=== PATIENT | female | born 1980 | race Caucasian/White ===

== ENCOUNTER 2018-04-01 17:33 | Emergency (ER) | payer BC, SELFPAY ==
[2018-04-01 17:51] VITALS: BP 124/74; PULSE 92; RESP 18; TEMP 36; O2SAT 100
--- NOTE | 2018-04-01 17:59 | DI.RAD_ITS ---
SYMPTOM/DIAGNOSIS: CRUSHED HAND, CENTRAL PAIN AND SNUFF BOX PAIN LEFT HAND: No fracture or dislocation is seen. There is mild spurring at the first carpal metacarpal joint. IMPRESSION: Mild degenerative changes at the first carpal, metacarpal joint. No acute abnormality.
--- NOTE | 2018-04-01 18:29 | W.ED.GENAD ---
Discharge Plan Disposition Patient Disposition: HOME Condition: Good Discharge Details Chief Complaint: Orthopedic Clinical Impression: Hand pain, Fracture of metacarpal Primary Care Provider: Amalia Jiménez ED Provider: Brennan Hancock Home Meds and New Rx's Prescriptions: New acetaminophen [Mapap Extra Strength] 500 MG tablet 1,000 mg PO Q6H 5 Days Qty: 60 RF: 0 ibuprofen [Motrin IB] 200 MG tablet 600 mg PO Q6H 5 Days Qty: 60 RF: 0 No Action multivitamin [Daily Multiple] 1 EACH tablet 1 ea PO DAILY RF: 0 Discharge Instructions Instructions: RICE Therapy (ED), Wrist Sprain (ED) Additional Instructions: Please use the wrist splint at all times. Please take Tylenol and Motrin for control of the pain. Please use ice as often as possible. Please follow-up with your primary care provider soon as possible for reassessment. If your numbness and tingling and pain continue, will need follow-up with an orthopedic surgeon. If you notice worsening of her swelling, pain, numbness or tingling, please return immediately. If you notice any worsening of your symptoms, or any new symptoms such as vomiting, diarrhea, fever, chills, shortness of breath, chest pain, numbness, weakness, or fainting , please return immediately to the emergency department for reevaluation. Please follow up with your primary care provider as soon as possible for reassessment and reevaluation. As always, it was a pleasure participating in your medical care today. Medical Decision Making MDM Narrative Medical decision making narrative: This is a pleasant 37-year-old female who presents with pain in her left nondominant hand after getting it stuck between a car mirror and a bureau. There is mild swelling noted on the dorsal aspect of the hand. She has subjective decrease in sensation over the palmar aspect of the index and middle finger as well as the thumb. Some tenderness roughly half a centimeter distal to the anatomical snuffbox. Good finger strength with thumb and all fingers. Good movement. Brisk capillary refill in all extremities and fingers. X-ray of the hand reveals per virtual radiology tiny fragment at the radial aspect of the first carpometacarpal joint of uncertain acuity. The patient demonstrates good movement, although sensation is slightly decreased over the median nerve distribution it is still intact. I discussed the case with Dr. Palma, who recommended wrist splint. We did discuss wrist splint versus thumb spica, his recommendation was for a normal wrist splint at this time. We did place this on the patient, she tolerated well. At this time I feel she can be safely discharged home with continued ice, NSAIDs and close follow-up with her PCP. Dr. Palma's recommendation was for PCP reevaluation for continued symptomatology or improvement or worsening of her symptoms. If her symptoms worsen or did not improve she should have orthopedic follow-up as arranged by her PCP. We discussed red flags with the patient for which to return and she understands. I have extensively reviewed the treatment plan and discharge instructions with the patient and their family. I have addressed all patient concerns at this time. The patient and family was made aware of what symptoms to monitor for that would warrant a return to the emergency department. Discussed the plan with the patient and family, they demonstrate verbal understanding and agreement with our assessment and plan at this time. HPI - General Adult General Date/Time Provider Initiated Documentation: 04/01/18 17:59. HPI Narrative: This is a pleasant 37-year-old female who presents for left hand pain. She is right-hand dominant. Patient states that earlier today she was moving a bureau when the [place] and her hand pushed up against the mirror of the car. The focus of the pain was located in the center of her hand. She had notable pain at that point as well as associated swelling in the dorsum of the hand. Patient also complains of decreased sensation over the ventral aspect of the index and middle finger as well as a small component of the thumb. She is able to move all of her fingers hand and wrist, over date is limited slightly by pain. She denies any associated forearm, elbow, or other pain. The patient denies any other complaints at this time. She denies any previous surgeries. She denies any medication use. She denies any pertinent family history. She denies any IV or illicit drug use. She denies any radiation of the pain, or any other associated symptoms. She has been placing ice on the hand, but denies any other aggravating or relieving factors. She did take Tylenol and Motrin at home with no significant improvement. Related Data Home Medications Medication Instructions Recorded Confirmed multivitamin [Daily Multiple 1 ea PO DAILY 12/06/16 04/01/18 Vitamin] Previous Rx's Medication Instructions Recorded acetaminophen [Mapap Extra 1,000 mg PO Q6H 5 Days #60 tab 04/01/18 Strength] ibuprofen [Motrin Ib] 600 mg PO Q6H 5 Days #60 tab 04/01/18 Allergies Allergy/AdvReac Type Severity Reaction Status Date / Time acetaminophen [From Vicodin] AdvReac Intermediate Nausea Unverified 04/01/18 17:59 hydrocodone bitartrate AdvReac Intermediate Nausea Unverified 04/01/18 17:59 [From Vicodin] General Stated Complaint: Orthopedic ZAC: 4 Review of Systems Review of Systems 10 point review of systems was performed, pertinent positives and negatives are noted in the history of present illness. Exam Narrative Exam Narrative: 1.Const: Well-nourished, Well-developed, appearing stated age 2.Eyes: PERRL, no conjunctival injection, and symmetrical lids. 3.ENT: Atraumatic external nose and ears. Moist MM. Neck: Symmetric, trachea midline, No thyromegaly. 4.CVS: +S1/S2, No murmurs or gallops. Peripheral pulses 2+ and equal in all extremities. Brisk capillary refill in all extremities. 5.RESP: Unlabored respiratory effort. Clear to auscultation bilaterally. No wheezes rales or rhonchi 6.GI: Soft, Nontender/Nondistended, No hepatosplenomegaly. No guarding or rebound. 7.MSK: Normocephalic, No cyanosis or clubbing, patient demonstrates normal extremity exam for all extremities except for the left hand. She is right-hand dominant. Left hand demonstrates swelling on the dorsum of the hand located centrally. The patient has pain with flexion and extension of all fingers distally to this. However she is able to move them well with good flexion and extension. She demonstrates good 2 point discrimination over the fourth and fifth digit, as well as the dorsal aspect of the hand and all fingers. She has present sensation, that is intact for the palmar surface of her thumb index and ring finger, however it is reduced compared to the other fingers. Two-point discrimination is present. Patient does have minimal tenderness near the anatomical snuffbox. However it it is roughly 1 cm distal to the snuffbox itself. Patient has good movement for flexion extension of the risks, as well as abduction and abduction of the thumb and index finger and middle finger. Patient is able to make the okay sign and able to maintain a good ground transportation operator with her thumb and index finger. 8.Skin: Warm, Dry. No rashes or lesions. 9.Neuro: refrigeration specialist II-XII grossly intact. Sensation grossly intact, no focal neurologic deficits. 10.Psych: (AAO) x3. Appropriate mood and affect Course Vital Signs Temperature 36 C L 04/01/18 17:51 Pulse 92 H 04/01/18 17:51 Respiratory Rate 18 04/01/18 17:51 Blood Pressure 124/74 04/01/18 17:51 Pulse Oximetry 100 04/01/18 17:51 Temperature 36 C L 04/01/18 17:51 Pulse 92 H 04/01/18 17:51 Respiratory Rate 18 04/01/18 17:51 Blood Pressure 124/74 04/01/18 17:51 Pulse Oximetry 100 04/01/18 17:51
--- NOTE | 2018-04-01 19:11 | DI.VRAD_ITS ---
EXAM: XR Left Hand Complete, 3 or more Views EXAM DATE/TIME: 04/01/2018 6:00 PM CLINICAL HISTORY: 37 years old, female; Pain; Hand; Left; Patient HX: Crushed hand between car and bureau; Additional info: Central pain and snuff box pain TECHNIQUE: XR Left hand 3 or more views. COMPARISON: No relevant prior studies available. FINDINGS: Bones/joints: Tiny fragment noted at the radial base of the first carpometacarpal joint, of uncertain acuity. No other fractures are seen. Alignment is within normal limits. Joint spaces are preserved. Soft tissues: Mild swelling of the dorsal soft tissues over the proximal metacarpals. Remaining soft tissues are unremarkable. IMPRESSION: Tiny fragment at the radial aspect of the first carpometacarpal joint, of uncertain acuity. Correlate for focal tenderness. No other acute fractures. Dictated and Authenticated by: Rey Beavers MD. Ordering:WILMAN SANTOS MD
== END 2018-04-01 19:45 | disposition home or self-care (01) ==
PROVIDERS: Emergency Provider Student in an Organized Health Care Education/Training Program; PCP Family Medicine
DX: S62.232A Other displaced fracture of base of first metacarpal bone, left hand, initial encounter for closed fracture (principal); R20.0 Anesthesia of skin; W23.0XXA Caught, crushed, jammed, or pinched between moving objects, initial encounter
CPT/HCPCS: 26600; 73130; L3908

== ENCOUNTER 2018-09-05 13:02 | Outpatient (CLI) | payer BC, SELFPAY ==
--- NOTE | 2018-09-05 09:37 | DI.RAD_ITS ---
SYMPTOMS/DIAGNOSIS: RIGHT SHOULDER JOINT PAIN, M25.511 RIGHT SHOULDER: No bony or joint abnormality is seen.
== END 2018-09-05 13:22 ==
PROVIDERS: PCP Family Medicine; Visit Provider Family Medicine
DX: M25.511 Pain in right shoulder (principal)
CPT/HCPCS: 73030

== ENCOUNTER 2019-04-29 07:57 | Outpatient (REF) | payer BC, SELFPAY ==
[2019-04-29 14:28] LABS: HCT 40.4 % (36.0-46.0); HGB 13.3 g/dL (12.0-15.5); Mean Corp. HGB Concentration 32.9 g/dL (32.0-36.0); Mean Corpuscular Hemoglobin 28.2 pg (27.0-33.0); Mean Corpuscular Volume 85.6 fL (80-95); Mean Platelet Volume 12.3 fL (8.0-11.0); Platelet Count 265 x1000/uL (130-400); RBC 4.72 m/cumm (4.00-5.20); RBC Distribution Width 12.9 % (11.7-14.6); White Blood Cell Count 6.49 k/cumm (4.4-10.8)
[2019-04-29 14:54] LABS: Anion Gap 10.9 mmol/L (3-11); BUN 13 mg/dL (7-18); CO2 25.1 mmol/L (21.0-32.0); CREATININE 0.99 mg/dL (0.55-1.02); Calcium 8.8 mg/dL (8.5-10.1); Chloride 106 mmol/L (98-107); Glucose 91 mg/dL (70-100); Potassium 4.3 mmol/L (3.5-5.1); Sodium 142 mmol/L (136-145)
[2019-04-29 15:05] LABS: Hemoglobin A1C 5.3 % (4.5-6.2)
== END 2019-04-29 08:17 ==
LOC: NCHCN 07:57
PROVIDERS: PCP Family Medicine; Visit Provider Family Medicine
DX: Z00.00 Encounter for general adult medical examination without abnormal findings (principal); N92.1 Excessive and frequent menstruation with irregular cycle
CPT/HCPCS: 80048; 85027; 83036

== ENCOUNTER 2019-05-08 01:42 | Outpatient (CLI) | payer BC, SELFPAY ==
--- NOTE | 2019-05-08 16:12 | DI.MAMMO_ITS ---
EXAM: MG MAMMO SCREENING MAMMO SCREENING CLINICAL HISTORY: SCREENING, Z12.39 SCREENING, Z12.39 TECHNIQUE: Mammograms were interpreted according to the usual protocol including computer analysis w [employer] CAD system, tomosynthesis and C-view imaging. COMPARISON: None FINDINGS: The breasts are composed of heterogeneously dense fibroglandular densities, Breast Density category C . No suspicious masses or suspicious microcalcifications are seen. No skin thickening or abnormal axillary lymph nodes are seen. There has been no significant change from prior exams. IMPRESSION: BIRADS Category 1, negative mammogram. Yearly screening mammography is recommended. The mammogram demonstrates the patient's breast tissue is dense. Dense breast tissue is very common a nd is not abnormal but dense breast tissue can make it harder to find cancer on a mammogram. Also, de nse breast tissue may increase their breast cancer risk. This information about the result of the [facility] mogram report was provided to the patient to raise their awareness. Use this report when you speak wi th the patient about their risks for breast cancer, which includes their family history. At that time , you may recommend for more screening tests (Ultrasound or MRI) as they might be useful based on the ir risk. A negative radiographic report should not delay biopsy if a dominant or clinically suspicious mass is present. Up to ten percent of cancers are not identified on mammography. A negative report may reinforce clinical impression. Adenosis and dense breasts may obscure an underlying neoplasm. False positive reports average 6 to 10%.
== END 2019-05-08 02:02 ==
PROVIDERS: PCP Family Medicine; Visit Provider Family Medicine
DX: Z12.31 Encounter for screening mammogram for malignant neoplasm of breast (principal)
CPT/HCPCS: 77063; 77067

== ENCOUNTER 2019-06-03 16:37 | Outpatient (REF) | payer BC, SELFPAY ==
--- NOTE | 2019-06-03 16:10 | SKI_PTH ---
PATIENT: Teodora Montenegro LOC: [facility] U#:[id number] AGE/SX: 38/F ROOM: RE06/03/[address]: Rubens Alvarado DO : 1980 BED: DIS: 06/03/2019 SPEC #: [id number] RECD: 06/03/19 18:37 STATUS: GINO REQ #: [id number] GAIL: 06/03/19 16:[address]: Amalia Jiménez DEPT: Surgical Specimen RECD BY: Claire Luevano Tissues: 1 - SKIN BIOPSY(SHAVE/PUNCH) Procedures: GROSS AND MICRO LEVEL 3 Comments: [id number]
== END 2019-06-03 16:57 ==
LOC: LBN 16:37
PROVIDERS: PCP Family Medicine; Referring Provider Otolaryngology Otolaryngology/Facial Plastic Surgery; Visit Provider Otolaryngology Otolaryngology/Facial Plastic Surgery
DX: L72.11 Pilar cyst (principal)
CPT/HCPCS: 88304; 88305

== ENCOUNTER 2020-04-16 13:21 | Outpatient (REF) | payer OTHER, SELFPAY ==
--- NOTE | 2020-04-16 12:00 | PAPFT_PTH ---
PATIENT: Teodora Montenegro LOC: [facility]#:[id number] AGE/SX: 39/F ROOM: RE04/16/[address]: Amalia Jiménez : 1980 BED: DIS: 04/16/2020 SPEC #: [id number] RECD: 04/16/20 17:49 STATUS: GINO REEmilia #: [id number] GAIL: 04/16/20 12:[address]: Amalia Jiménez DEPT: [facility] Cytology RECD BY: Claire Luevano Tissues: 1 - CX/ENDOCX FOR PAP SMEARS Procedures: PAP THIN PREP/UVM Screening HPV DNA PROBE Comments: [id number]
[2020-04-16 19:13] LABS: TSH 2.35 uIU/mL (0.36-3.74)
== END 2020-04-16 13:41 ==
LOC: NCHCN 13:21
PROVIDERS: PCP Family Medicine; Visit Provider Family Medicine
DX: R63.5 Abnormal weight gain (principal); Z00.00 Encounter for general adult medical examination without abnormal findings; Z12.4 Encounter for screening for malignant neoplasm of cervix; Z11.51 Encounter for screening for human papillomavirus (HPV); N88.2 Stricture and stenosis of cervix uteri
CPT/HCPCS: 88142; 84443; 87624

== ENCOUNTER 2020-06-01 14:04 | Outpatient (REF) | payer OTHER, SELFPAY ==
[2020-06-04 20:07] LABS: Patient Race White; SARS-CoV-2 RNA Undetected (Undetected); SARS-CoV-2 Specimen Source Nasal
== END 2020-06-01 14:24 ==
LOC: NCHCN 14:04
PROVIDERS: PCP Family Medicine; Visit Provider Nurse Practitioner Family
DX: Z20.828 Contact with and (suspected) exposure to other viral communicable diseases (principal)
CPT/HCPCS: U0003

== ENCOUNTER → 2020-12-11 12:54 | Outpatient (CLI) | payer OTHER, SELFPAY ==
--- NOTE | 2020-12-11 | DI.RAD_ITS ---
Exam(s) XR FOOT RT COMPLETE EXAM: XR FOOT RT COMPLETE CLINICAL HISTORY: RT FOOT PAIN M79.671 TECHNIQUE: COMPARISON: No exams were available for comparison FINDINGS: Three views were obtained. There is a mild hallux valgus deformity. Alignment is otherwise within n ormal limits. There is minor spurring at the Achilles attachment on the calcaneus. No other signifi cant bony or soft tissue abnormality seen. IMPRESSION: RADIATION DOSE DELIVERED: Total DLP
== END ==
PROVIDERS: PCP Family Medicine; Visit Provider Physician Assistant Medical
DX: M79.671 Pain in right foot (principal); M20.11 Hallux valgus (acquired), right foot; M77.31 Calcaneal spur, right foot
CPT/HCPCS: 73630

== ENCOUNTER 2021-07-21 00:27 | Outpatient (CLI) | payer OTHER, SELFPAY ==
[2021-07-21] MEDS: Gadoterate meglumine 20 ML VIAL 16 ML IVP (14:23)
[2021-07-21] MEDS: Normal Saline Flush 10 ML SYR IVP (14:24)
--- NOTE | 2021-07-21 15:00 | DI.MRI_ITS ---
Exam(s) MR LOWER EXTREMITY RT WO/W EXAM: MR LOWER EXTREMITY RT WO/W CLINICAL HISTORY: PAIN, RFF,NEUROMA TECHNIQUE: Multiplanar multisequence MRI was performed. COMPARISON: No exams were available for comparison FINDINGS: MARROW:There is no evidence of fracture, bone contusion, nor osseous erosions.. There are no signifi cant osseous lesions. ARTICULATIONS: No obvious joint effusions. No obvious degenerative changes. No erosions. No eviden ce of para-articular ganglion. Main Lisfranc joint appears unremarkable. No intraosseous signal abnormality in the metatarsals. MUSCLES: There is no evidence of abnormal signal nor mass in the visualized muscles. EXTRAMUSCULAR SOFT TISSUES: There is a skin marker mint on the undersurface of the foot subjacent to the 1st intermetatarsal space. Multi dior edema at this level noted but no tenosynovitis nor tendon tears. OTHER: Unfortunately, there is no coronal non fat sat T1 weighted sequence to determine the presence of possible Myers's interdigital neuroma. IMPRESSION: 1. No significant intraosseous nor articular findings. 2. However, difficult to determine if there is evidence of interdigital neuroma given that there is n o coronal non fat sat T1 weighted sequence. This patient return at no additional charge to perform t his sequence. 3. DATA REPOSITORY:
== END 2021-07-21 00:47 ==
LOC: DI 00:28
PROVIDERS: PCP Family Medicine; Visit Provider Podiatrist
DX: M79.661 Pain in right lower leg (principal); R60.0 Localized edema; M77.41 Metatarsalgia, right foot
CPT/HCPCS: 73720

== ENCOUNTER 2022-09-21 16:56 | Outpatient (REF) | payer BC, SELFPAY ==
[2022-09-21 15:25] LABS: Anion Gap 11.9 mmol/L (3-11); BUN 10 mg/dL (7-18); CO2 27.1 mmol/L (21.0-32.0); CREATININE 0.8 mg/dL (0.55-1.02); Calcium 9.6 mg/dL (8.5-10.1); Calculated LDL 95 mg/dL (<100); Chloride 102 mmol/L (98-107); Cholesterol 175 mg/dL (<200); Ferritin 53 ng/mL (8-252); Folate 15.4 ng/mL (8.6-20.0); Glucose 90 mg/dL (74-106); HDL Cholesterol 65 mg/dL (40-60); Potassium 4.5 mmol/L (3.5-5.1); Sodium 141 mmol/L (136-145); TSH (W/Ref FT4) 1.65 uIU/mL (0.36-3.74); Triglyceride 77 mg/dL (<150); Vitamin B12 481 pg/mL (193-986)
== END 2022-09-21 16:57 | disposition home or self-care (01) ==
LOC: NCHCN 16:56
PROVIDERS: PCP Family Medicine; Visit Provider Family Medicine
DX: R53.83 Other fatigue (principal); R63.4 Abnormal weight loss; G62.9 Polyneuropathy, unspecified
CPT/HCPCS: 80048; 80061; 85027; 82607; 82728; 82746; 84443

== ENCOUNTER 2022-09-28 17:57 | Outpatient (REF) | payer BC, SELFPAY ==
[2022-09-28 20:16] LABS: HCT 40.6 % (36.0-46.0); HGB 13.4 g/dL (11.2-15.7); MCH 27.9 pg (27.0-33.0); MCV 84 fL (80-95); MPV 12.5 fL (8.0-11.0); Platelet Count 298 10^3/uL (130-400); RBC 4.81 10^6/uL (3.93-5.22); RDW 13.2 % (11.7-14.6); RDW-SD 40.7 fL; WBC 8.56 10^3/uL (4.4-10.8)
== END 2022-09-28 17:58 | disposition home or self-care (01) ==
LOC: NCHCN 17:57
PROVIDERS: PCP Family Medicine; Visit Provider Family Medicine
DX: R53.83 Other fatigue (principal); R63.4 Abnormal weight loss; G62.9 Polyneuropathy, unspecified
CPT/HCPCS: 85027

== ENCOUNTER 2022-11-29 01:50 | Outpatient (CLI) | payer BC, SELFPAY ==
--- NOTE | 2022-11-29 | DI.RAD_ITS ---
Exam(s) XR CHEST 2V PA LATERAL EXAM: XR CHEST 2V PA LATERAL CLINICAL HISTORY: NECK MASS, R22.1, COUGH, R05.8. TECHNIQUE: 2D digital imaging was performed. COMPARISON: No exams were available for comparison FINDINGS: 2 views: Heart size is normal. The mediastinum is not widened. Lungs are clear. No infiltrates nor pleural effusions. IMPRESSION: No acute pulmonary findings. DATA REPOSITORY: RADIATION DOSE DELIVERED:
== END 2022-11-29 02:10 ==
LOC: DI 01:50
PROVIDERS: PCP Family Medicine; Visit Provider Family Medicine
DX: R05.8 Other specified cough (principal); R22.1 Localized swelling, mass and lump, neck
CPT/HCPCS: 71046

== ENCOUNTER 2022-12-15 02:19 | Outpatient (CLI) | payer BC, SELFPAY ==
--- NOTE | 2022-12-15 08:30 | DI.CT_ITS ---
Exam(s) CT NECK W EXAM: CT NECK W CLINICAL HISTORY: NECK MASS, R22.1; COUGH, R05.8. TECHNIQUE: Imaging Protocol: Axial computed tomography images with coronal and sagittal reformatted images were created and reviewed. CONTRAST MATERIAL: Intravenous: Omnipaque 350 Contrast volume:100mL COMPARISON: No exams were available for comparison FINDINGS: Orbits and orbital soft tissues: Within normal limits. Visualized paranasal sinuses: Within normal limits. Nasopharynx: Within normal limits. Oropharynx: Within normal limits. Hypopharynx: Within normal limits. Larynx: Within normal limits. Retropharyngeal space: Within normal limits. Parotids/submandibular: Within normal limits. Thyroid gland: Within normal limits. Lymphadenopathy: There is scattered lymph nodes seen along the level one to level three all measurin g less than 8 mm in short axis diameter which are physiologic in nature. Trachea: Within normal limits. Lung apices: Within normal limits. Bones: Within normal limits for the patient's age. Carotids/Jugular: Within normal limits. Soft tissues: Within normal limits. IMPRESSION: Unremarkable CT scan of the neck. No evidence of a neck mass or enhancing lesion. RADIATION DOSE DELIVERED: 491.95mGy.cm Total DLP 491.95mGy.cm Total DLP DATA REPOSITORY: All CT scans at this facility are submitted to the National Radiology Data Registry (NRDR) Dose Index Registry (DIR) with the [employer] (ACR). RADIATION OPTIMIZATION: All CT scans at this facility use at least one of these dose optimization te chniques: automated exposure control; mA and/or kV adjustment per patient size (includes targeted exa ms where dose is matched to clinical indication); or iterative reconstruction.
[2022-12-15] MEDS: Normal Saline - Diluent 50 ML VIAL IJ (08:48)
[2022-12-15] MEDS: Omnipaque 350 MG/ML 500 ML BTL-Imaging package 100 ML IJ (08:48)
[2022-12-15] MEDS: Normal Saline Flush 10 ML SYR IJ (08:49)
== END 2022-12-15 02:39 ==
PROVIDERS: PCP Family Medicine; Visit Provider Family Medicine
DX: R22.1 Localized swelling, mass and lump, neck (principal); R05.8 Other specified cough
CPT/HCPCS: 70491

== ENCOUNTER 2024-05-15 18:27 | Outpatient (REF) | payer OTHER, SELFPAY ==
--- OUTSIDE RECORDS SUMMARY | 2024-05-15 18:28 | XMS_ITS | Encounter Summary ---
Author Organization [facility] Address [address] [place] [address] Care Team Providers Care Electronic Prepress Technician Name Role Phone Amalia Jiménez MD Primary Care Provider [phone] Encounter Details Date Type Department Care Team (Late st Contact Info) Description 06/04/2019 Lab Requisition [facility] Pathology & Laboratory Medicine - [address] [address] Rubens Alvarado, [address] [facility] [address] [place], [place] [address] Neoplasm of unspecified behavior of bone, soft tissue, and skin Social History Tobacco Use Types Packs/Day Years Used Date Smoking Tobacco: Never Assessed Sex and Gender Information Value Date Recorded Sex Assigned at Not on file Gender Identity Not on file Sexual Orientation Not on file documented as of this encounter Plan of Treatment Not on file documented as of this encounter Procedures Procedure Name Priority Date/Time Associated Diagnosis Comments SURGICAL PATHOLOGY Today 06/03/2019 16 :10 EST Neoplasm of unspecified behavior of bone, soft tissue, and skin documented in this encounter Results * SURGICAL PATHOLOGY (06/03/2019 16:10 EST) Final Diagnosis A. SKIN OF ARM, LEFT FOREARM, EXCISION: - Pilar (trichilemmal) cyst. 06/05/2019 12:35 EST [facility] at 1235 Clinical History D 49.2 06/05/2019 12:35 EST [facility] Attestation By the signature below, the attending physician certifies that they have personally conducted a gross and/or microscopic examination of the described specimens and rendered or confirmed the above diagnosis. 06/05/2019 12:35 [facility] at 1235 Gross Description Received in formalin labelled with proper patient identification (initials S, B) and left forearm is an oblong bae-white skin that measures 1.2 x 0.5 cm. There is a subcutaneous cyst towards 1 side of the specimen that measures 0.7 x 0.6 cm by 1.0 cm in depth. The external surface of the cyst is field-white, generally smooth with a small amount of loosely attached adipose tissue. The margin is inked blue, the specimen is sectioned revealing the subcutaneous cyst has a firm yellow-white cut surface. The specimen is entirely submitted as follows: BLOCK DEL RIO: A1- 1 tip, reverse en face, does not include cyst A2- 2 central sections A3- opposite tip, reverse en face Venkat Foley 06/04/2019 10:29 06/05/2019 12:35 [facility] Scanned Images 06/05/2019 12:35 [facility] Tissue TISSUE SPECIMEN FROM SKIN / Unknown 06/03/2019 16:10 EST 06/04/2019 8:58 EST Rubens Alvarado DO PATHOLOGY ORDER JULIAN [facility] [address] [place] [address] documented in this encounter Visit Diagnoses Diagnosis Neoplasm of unspecified behavior of bone, soft tissue, and skin documented in this encounter Care Teams Electronic Prepress Technician Relationship Specialty Start Date End Date Amalia Jiménez MD [address] [place] [phone] PCP - General 02/24/10 documented as of this encounter
--- OUTSIDE RECORDS SUMMARY | 2024-05-15 18:28 | XMS_ITS | Clinical Summary ---
Author Organization [facility] Address [address] [place] [address] Care Team Providers Care Sand Caster Name Role Phone Amalia Jiménez MD Primary Care Provider [phone] Social History Tobacco Use Types Packs/Day Years Used Date Smoking Tobacco: Never Assessed Sex and Gender Information Value Date Recorded Sex Assigned at Not on file Gender Identity Not on file Sexual Orientation Not on file Plan of Treatment Health Maintenance Due Date Last Done Comments Hepatitis C Screen 1980 Hepatitis B Vaccine (1 of 3 - 19+ 3-dose series) 11/11 COVID-19 Vaccine (2022- season) 2023 Care Teams Sand Caster Relationship Specialty Start Date End Date Amalia Jiménez MD [address] [place] [phone] PCP - General 02/24/10
--- OUTSIDE RECORDS SUMMARY | 2024-05-15 18:28 | XMS_ITS | Encounter Summary ---
Author Organization [facility] Address [address] [place] [address] Care Team Providers Care Oil Burner Servicer And Installer Name Role Phone Unavailable Primary Care Provider Unavailabl e Encounter Details Date Type Department Care Team (Late st Contact Info) Description 04/25/2002 Results Only [facility] - Maple conversion [address] [place] [address] Loli Lopez MD [address] [place] [address] [place] [phone] Social History Tobacco Use Types Packs/Day Years Used Date Smoking Tobacco: Never Assessed Sex and Gender Information Value Date Recorded Sex Assigned at Not on file Gender Identity Not on file Sexual Orientation Not on file documented as of this encounter Plan of Treatment Not on file documented as of this encounter Procedures Procedure Name Priority Date/Time Associated Diagnosis Comments SURGICAL PATHOLOGY Routine 04/25/2002 0:00 EDT documented in this encounter Results * SURGICAL PATHOLOGY (04/25/2002 0:00 EDT) Pathology Report: SURGICAL PATHOLOGY REPORT Reports generated via electronic interface contain original data; however they are lacking the format of the original report. Caution should be taken when reading/interpreti ng unformatted reports. Name: ? ULI GALEANA ? Accession #: ? [id number] ? : ? 1980 (Age: 21) ??F ? Collect Date: ? 04/25/2002 ? Location: ? [facility] ? Receive Date: ? 04/25/2002 ? Provider: LOLI LOPEZ MD Copy to: JESS AVERY MD ? Final Pathologic Diagnosis: A. ?Fallopian tube, left, partial resection: 1. ?Portion of benign fallopian tube with intact lumen. B. ?Fallopian tube, right, partial resection: ? 1. ?? Portion of benign fallopian tube with intact lumen. Document reviewed and electronically signed by: Italo Valenzuela MD Report ??Date: 04/29/2002 16:14 By the signature above, the attending physician certifies that he/she has personally conducted a gross and/or microscopic examination of the described specimens and rendered or confirmed the above diagnosis. Specimen(s) Received: A. ?Left tube B. ?Right tube Clinical History: ? Multiparity; LMP: Gross Description: ? Received in formalin labelled Brown and left tube is a portion of fallopian tube which measures 1.2 cm in length and 0.3 cm in diameter. ??The serosal surface is bae-pink and smooth. ??Cut sections reveal a bae-white smooth surface with a pinpoint lumen. ??Two circulation representative cross sections are submitted as (A). Received in formalin labelled Brown and right tube is a portion of fallopian tube which measures 1.8 cm in length and 0.3 cm in diameter. ??The serosal surface is bae-pink, smooth and focally hemorrhagic. ??Cut sections reveal a bae-white smooth surface with a pinpoint lumen. ??Two circulation representative cross sections are submitted as (B). ?? (Leon Herrera)/[facility] End of Report [facility] 04/25/2002 04/25/2002 15: 16 EDT Loli Lopez MD PATHOLOGY ORDERABLES Performing Organization Address City/State/[facility] Co de Phone Number [facility] [address] [place] [address] documented in this encounter Visit Diagnoses Not on filedocumented in this encounter
--- OUTSIDE RECORDS SUMMARY | 2024-05-15 18:28 | XMS_ITS | Encounter Summary ---
Author Organization [facility] Address [address] [place] [address] Care Team Providers Care Logistics Engineer Name Role Phone Amalia Jiménez MD Primary Care Provider [phone] Encounter Details Date Type Department Care Team (Late st Contact Info) Description 10/22/2002 Results Only [facility] - Maple conversion [address] [place] [address] Bettie Pablo, [facility] [address] [place] [address] [place] [address] Social History Tobacco Use Types Packs/Day Years Used Date Smoking Tobacco: Never Assessed Sex and Gender Information Value Date Recorded Sex Assigned at Not on file Gender Identity Not on file Sexual Orientation Not on file documented as of this encounter Plan of Treatment Not on file documented as of this encounter Procedures Procedure Name Priority Date/Time Associated Diagnosis Comments CYTOPATHOLOGY Routine 10/22/2002 0:00 EST documented in this encounter Results * CYTOPATHOLOGY (10/22/2002 0:00 EST) Pathology Report: CYTOPATHOLOGY REPORT Reports generated via electronic interface contain original data; however they are lacking the format of the original report. Caution should be taken when reading/interpreti ng unformatted reports. Name: ? ULI BRUNNER ? Accession #: ? [id number] : ? 1980 (Age: 21) ??F ?Collect Date: ? 10/22/2002 Location: ? [facility] ? Receive Date: ? 10/24/2002 Provider: ?BETTIE PABLO HEAD RESIDENT Copy to: ? Specimen/Source: ?ThinPrep Pap Test, Cervix/Endocervix Last Menstrual Period: ? 10/15/02 ? SPECIMEN ADEQUACY ? Satisfactory for Evaluation - transformation zone component present GENERAL CATEGORIZATION ? Negative for Intraepithelial Lesion or Malignancy ? Document reviewed and electronically signed by: ? TATYANA Law(ASCP) ? Report Date: ??10/28/2002 12:36 End of Report [facility] 10/22/2002 10/24/2002 Bettie Pablo HEAD RESIDENT PATHOLOGY ORDERABLES Performing Organization Address City/State/[facility] [place] Co de Phone Number [facility] [address] [place] [address] documented in this encounter Visit Diagnoses Not on filedocumented in this encounter Care Teams Logistics Engineer Relationship Specialty Start Date End Date Amalia Jiménez MD [address] [place] [phone] PCP - General 02/24/10 documented as of this encounter
--- OUTSIDE RECORDS SUMMARY | 2024-05-15 18:28 | XMS_ITS | Encounter Summary ---
Author Organization [facility] Address [address] [place] [address] Care Team Providers Care Territory Sales Consultant Name Role Phone Amalia Avery MD Primary Care Provider [phone] Encounter Details Date Type Department Care Team (Late st Contact Info) Description 01/27/2006 Results Only [facility] - Maple conversion [address] [place] [address] Amalia Avery MD [address] [phone] Social History Tobacco Use Types Packs/Day Years Used Date Smoking Tobacco: Never Assessed Sex and Gender Information Value Date Recorded Sex Assigned at Not on file Gender Identity Not on file Sexual Orientation Not on file documented as of this encounter Plan of Treatment Not on file documented as of this encounter Procedures Procedure Name Priority Date/Time Associated Diagnosis Comments CYTOPATHOLOGY Routine 01/27/2006 0:00 EDT documented in this encounter Results * CYTOPATHOLOGY (01/27/2006 0:00 EDT) Pathology Report: CYTOPATHOLOGY REPORT Reports generated via electronic interface contain original data; however they are lacking the format of the original report. Caution should be taken when reading/interpreti ng unformatted reports. Name: ? UIL BRUNNER ? Accession #: ? [id number] : ? 1980 (Age: 25) ??F ?Collect Date: ? 01/27/2006 Location: ? [facility] ? Receive Date: ? 01/31/2006 Provider: ?AMALIA AVERY MD Copy to: ? Specimen/Source: ?ThinPrep Pap Test, Cervix/Endocervix, processed on [employer] ThinPrep Imaging System, with manual evaluation Last Menstrual Period: ? 01/06/06 Other: ? HPVA - HPV testing requested if ASC-US on the current ThinPrep Pap test. ? SPECIMEN ADEQUACY ? Satisfactory for Evaluation - transformation zone component present GENERAL CATEGORIZATION ? Negative for Intraepithelial Lesion or Malignancy ? Document reviewed and electronically signed by: ? Sera Martin, [facility] [[email or web address]](ASCP) ? Report Date: ??02/02/2006 12:10 End of Report [facility] 01/27/2006 01/31/2006 Amalia Avery MD PATHOLOGY ORDERABLES Performing Organization Address City/State/[facility] [[email or web address]] Co de Phone Number [facility] [address] [place] [address] documented in this encounter Visit Diagnoses Not on filedocumented in this encounter Care Teams Territory Sales Consultant Relationship Specialty Start Date End Date Amalia Avery MD [address] [place] [phone] PCP - General 02/24/10 documented as of this encounter
--- OUTSIDE RECORDS SUMMARY | 2024-05-15 18:28 | XMS_ITS | Encounter Summary ---
Author Organization [facility] Address [address] [place] [address] Care Team Providers Care Abrasives Sales Representative Name Role Phone Unavailable Primary Care Provider Unavailabl e Encounter Details Date Type Department Care Team (Late st Contact Info) Description 08/28/2000 Results Only [facility] - Maple conversion [address] [place] [address] Amalia Avery MD [address] [facility] [address] [place] [phone] Social History Tobacco Use Types Packs/Day Years Used Date Smoking Tobacco: Never Assessed Sex and Gender Information Value Date Recorded Sex Assigned at Not on file Gender Identity Not on file Sexual Orientation Not on file documented as of this encounter Plan of Treatment Not on file documented as of this encounter Procedures Procedure Name Priority Date/Time Associated Diagnosis Comments CYTOPATHOLOGY Routine 08/28/2000 0:00 EST documented in this encounter Results * CYTOPATHOLOGY (08/28/2000 0:00 EST) Pathology Report: CYTOPATHOLOGY REPORT Reports generated via electronic interface contain original data; however they are lacking the format of the original report. Caution should be taken when reading/interpreti ng unformatted reports. Name: ? ULI GALEANA ? Accession #: ? [id number] : ? 1980 (Age: 19) ??F ?Collect Date: ? 08/28/2000 Location: ? [facility] ? Receive Date: ? 08/30/2000 Provider: ?AMALIA AVERY MD Copy to: ? Specimen/Source: ?Conventional Pap Test, Cervix/Endocervix Last Menstrual Period: ? 08/20/00 Menstrual/Pregnanc y Status: ? Post ? SPECIMEN ADEQUACY ? Satisfactory for evaluation. GENERAL CATEGORIZATION ? Within Normal Limits ? Document reviewed and electronically signed by: ? SINDY Santizo(ASCP) ? Report Date: ??08/30/2000 15:09 End of Report [facility] 08/28/2000 08/30/2000 Amalia Avery MD PATHOLOGY ORDERABLES [facility] [address] [place] [address] documented in this encounter Visit Diagnoses Not on filedocumented in this encounter
--- OUTSIDE RECORDS SUMMARY | 2024-05-15 18:28 | XMS_ITS | Encounter Summary ---
Author Organization [facility] Address [address] [place] [address] Care Team Providers Care Roller Inspector And Mender Name Role Phone Amalia Jiménez MD Primary Care Provider [phone] Encounter Details Date Type Department Care Team (Late st Contact Info) Description 03/10/2011 Results Only [facility] Laboratory Services - [facility] ([facility]) [address] [place] [address] Amalia Jiménez MD [address] [place] [address] [place] [phone] Social History Tobacco Use Types Packs/Day Years Used Date Smoking Tobacco: Never Assessed Sex and Gender Information Value Date Recorded Sex Assigned at Not on file Gender Identity Not on file Sexual Orientation Not on file documented as of this encounter Plan of Treatment Not on file documented as of this encounter Procedures Procedure Name Priority Date/Time Associated Diagnosis Comments PAP TEST- RESULT ONLY Routine 03/10/2011 0:00 EDT documented in this encounter Results * PAP TEST- RESULT ONLY (03/10/2011 0:00 EDT) Pathology Report: CYTOPATHOLOGY REPORT ? Reports generated via electronic interface contain original data; ? however they are lacking the format of the original report. ? Caution should be taken when reading/interpreti ng unformatted reports. ? Name: ? ULI LUO ? Accession #: ? [id number] ? : ? 1980 (Age: 30) ??F ?Collect Date: ? 03/10/2011 ? Location: ? [facility] ? Receive Date: ? 03/14/2011 ? Provider: AMALIA GENA MD ? Copy to: ? Final Report ? SPECIMEN ADEQUACY ? Satisfactory for Evaluation ? - transformation zone component absent ? GENERAL CATEGORIZATION ? Negative for Intraepithelial Lesion or Malignancy ? Last Menstural Period: 8/6/11 ? Previous Gynecologic Pathology: ALONSO: cervical dysplasia at age 13 ? Treatment History: Cryotherapy: age 13 ? Other: Additional clinical information: negative paps recently ? Specimen/Source: ??Pap Test, Cervix/Endocervix, ThinPrep Imaging System with ? manual evaluation ? Document reviewed and electronically signed by: ? Sera Martin, SCT(ASCP) ? Report ??Date: 03/21/2011 08:30 ? HPV with Pap Test ? Date Ordered: ? 03/18/2011 ? Status: ?? Signed Out ?Date Complete: ? 03/22/2011 ? By: ??System Interface ? Date Reported: ? 03/22/2011 ? Interpretation ? RESULT: Negative for HPV types 16, 18, 31, 33, 35, 39, 45, 51, 52, ? 56, 58, 59, and 68. ? Comments ? Document reviewed and electronically signed by: ? System Interface ? Report date: 03/22/2011 ? By the signature above, the attending physician certifies that he/she has ? personally conducted a gross and/or microscopic examination of the described ? specimens and rendered or confirmed the above diagnosis. ? End of Report ? [facility] 03/10/2011 03/14/2011 Amalia Jiménez MD PATHOLOGY ORDERABLES Performing Organization Address City/State/[place] Co de Phone Number [facility] [address] [place] [address] documented in this encounter Visit Diagnoses Not on filedocumented in this encounter Care Teams Roller Inspector And Mender Relationship Specialty Start Date End Date Amalia Jiménez MD [address] [place] [phone] PCP - General 02/24/10 documented as of this encounter
--- OUTSIDE RECORDS SUMMARY | 2024-05-15 18:28 | XMS_ITS | Encounter Summary ---
Author Organization [facility] Address [address] [place] [address] Care Team Providers Care Hair Assistant Name Role Phone Unavailable Primary Care Provider Unavailabl e Encounter Details Date Type Department Care Team (Late st Contact Info) Description 10/09/2001 Results Only [facility] - Maple conversion [address] [place] [address] Jinny Dumont [address] [place], [place] [phone] Social History Tobacco Use Types Packs/Day Years Used Date Smoking Tobacco: Never Assessed Sex and Gender Information Value Date Recorded Sex Assigned at Not on file Gender Identity Not on file Sexual Orientation Not on file documented as of this encounter Plan of Treatment Not on file documented as of this encounter Procedures Procedure Name Priority Date/Time Associated Diagnosis Comments CYTOPATHOLOGY Routine 10/09/2001 0:00 EST documented in this encounter Results * CYTOPATHOLOGY (10/09/2001 0:00 EST) Pathology Report: CYTOPATHOLOGY REPORT Reports generated via electronic interface contain original data; however they are lacking the format of the original report. Caution should be taken when reading/interpreti ng unformatted reports. Name: ? ULI GALEANA ? Accession #: ? [id number] : ? 1980 (Age: 20) ??F ?Collect Date: ? 10/09/2001 Location: ? [facility] ? Receive Date: ? 10/11/2001 Provider: ?JINNY DUMONT CNM Copy to: ? Specimen/Source: ?ThinPrep Pap Test, Cervix/Endocervix Last Menstrual Period: ? 06/23 Menstrual/Pregnanc y Status: ? SPECIMEN ADEQUACY ? Satisfactory for Evaluation - transformation zone component present GENERAL CATEGORIZATION ? Negative for Intraepithelial Lesion or Malignancy ? Document reviewed and electronically signed by: ? TATYANA Salas(ASCP) ? Report Date: ??10/17/2001 13:11 End of Report [facility] 10/09/2001 10/11/2001 Jinny Dumont CNM PATHOLOGY ORDERABLES [facility] [address] [place] [address] documented in this encounter Visit Diagnoses Not on filedocumented in this encounter
--- OUTSIDE RECORDS SUMMARY | 2024-05-15 18:28 | XMS_ITS | Encounter Summary ---
Author Organization [facility] Address [address] [place] [address] Care Team Providers Care Server Assistant Name Role Phone Amalia Avery MD Primary Care Provider [phone] Encounter Details Date Type Department Care Team (Late st Contact Info) Description 07/12/2007 Results Only [facility] - Maple conversion [address] [place] [address] Amalia Avery MD [address] [phone] Social History Tobacco Use Types [...] Priority Date/Time Associated Diagnosis Comments CYTOPATHOLOGY Routine 07/12/2007 0:00 EST documented in this encounter Results * CYTOPATHOLOGY (07/12/2007 0:00 EST) Pathology Report: CYTOPATHOLOGY REPORT Reports generated via electronic interface contain original data; however they are lacking the format of the original report. Caution should be taken when reading/interpreti ng unformatted reports. Name: ? ULI BRUNNER ? Accession #: ? [id number] : ? 1980 (Age: 26) ??F ?Collect Date: ? 07/12/2007 Location: ? [facility] ? Receive Date: ? 07/18/2007 Provider: ?AMALIA AVERY MD Copy to: ? Specimen/Source: ?ThinPrep Pap Test, Cervix/Endocervix, processed on [employer] ThinPrep Imaging System, with manual evaluation Last Menstrual Period: ? 06/28/07 Other: ? HPVA - HPV testing requested if ASC-US on the current ThinPrep Pap test. ? SPECIMEN ADEQUACY ? Satisfactory for Evaluation - transformation zone component present GENERAL CATEGORIZATION ? Negative for Intraepithelial Lesion or Malignancy ? Document reviewed and electronically signed by: ? Chloe Saunders CT(ASCP) ? Report Date: ??07/20/2007 12:19 End of Report [facility] 07/12/2007 07/18/2007 Amalia Avery MD PATHOLOGY ORDERABLES Performing Organization Address City/State/[facility] [[email or web address]] Co de Phone Number [facility] [address] [place] [address] documented in this encounter Visit Diagnoses Not on filedocumented in this encounter Care Teams Server Assistant Relationship Specialty Start Date End Date Amalia Avery MD [address] [place] [phone] PCP - General 02/24/10 documented as of this encounter
--- OUTSIDE RECORDS SUMMARY | 2024-05-15 18:28 | XMS_ITS | Encounter Summary ---
Author Organization [facility] Address [address] [place] [address] Care Team Providers Care Imaging Account Manager Name Role Phone Amalia Jiménez MD Primary Care Provider [phone] Encounter Details Date Type Department Care Team (Latest Contact Info) Description 04/17/2020 Lab Requisition [facility] Pathology & Laboratory Medicine - [facility] [address] [place] [address] Amalia Jiménez MD [address] [place] [phone] Encounter for general adult medical examination without abnormal findings; Encounter for screening for malignant neoplasm of cervix; Encounter for screening for human papillomavirus (HPV) Social History Tobacco Use Types Packs/Day Years Used Date Smoking Tobacco: Never Assessed Sex and Gender Information Value Date Recorded Sex Assigned at Not on file Gender Identity Not on file Sexual Orientation Not on file documented as of this encounter Plan of Treatment Not on file documented as of this encounter Procedures Procedure Name Priority Date/Time Associated Diagnosis Comments PAP TEST Today 04/16/2020 12:00 EDT Encounter for general adult medical examination without abnormal findings Encounter for screening for malignant neoplasm of cervix Encounter for screening for human papillomavirus (HPV) HPV DNA DETECTION WITH GENOTYPING, PCR Today 04/16/2020 12:00 EDT Encounter for general adult medical examination without abnormal findings Encounter for screening for malignant neoplasm of cervix Encounter for screening for human papillomavirus (HPV) documented in this encounter Results * HUMAN PAPILLOMAVIRUS (HPV) DETECTION-HIGH RISK TYPES (04/16/2020 12:00 EDT) HPV other High Risk types, PCR Negative Negative 04/24/2020 15:07 EDT [facility] Comment:No E6 or E7 mRNA is detected from HPV types 16,18,31,33,35,39,45,51,52,56,58,59,66, and 68 by sustainable development policy analyst mediated amplification. Papanicolaou smear specimen (specimen) CERVIX UTERI STRUCTURE / Unknown 04/16/2020 12:00 EDT 04/22/2020 16:09 EDT Amalia Jiménez MD MICROBIOLOGY - GENER AL ORDERABLES [facility] [address] [place] [address] * PAP TEST (04/16/2020 12:00 EDT) Specimens A. Cervix and/or Endocervix , ThinPrep Imaging System with Manual Evaluation 04/24/2020 15:07 T [facility] Specimen Adequacy Satisfactory for Evaluation - transformation zone component absent 04/24/2020 15:07 [facility] General Categorization Negative for intraepithelial lesion or malignancy 04/24/2020 15:07 T [facility] Attestation . 04/24/2020 15:07 [facility] at 1507 Clinical History See below 04/24/20 20 15:07 T [facility] HPV The result for the Human Papillomavirus (HPV) Detection-High Risk Types is Negative. No E6 or E7 mRNA is detected from HPV types 16,18,31,33,35,39 ,45,51,52,56,58,5 9,66, and 68 by sustainable development policy analyst mediated amplification.Mel ting was performed on specimen [id number] and was resulted on 04/24/2020 1501 EDT by MAKENZIE, LAB INSTRUMENT RESULTS IN 04/24/2020 15:07 T [facility] Performing Lab [facility] 04/24/2020 15:07 T [facility] Scanned Images 04/24/2020 15:07 T [facility] Papanicolaou smear specimen (specimen) CERVIX UTERI STRUCTURE / Unknown 04/16/2020 12:00 EDT 04/17/2020 13:28 EDT Amalia Jiménez MD PATHOLOGY ORDERABLES [facility] [address] [place] [address] documented in this encounter Visit Diagnoses Diagnosis Encounter for general adult medical examination without abnormal findings Unspecified general medical examination Encounter for screening for malignant neoplasm of cervix Screening for malignant neoplasm of the cervix Encounter for screening for human papillomavirus (HPV) Special screening examination for human papillomavirus (HPV) documented in this encounter Care Teams Imaging Account Manager Relationship Specialty Start Date End Date Amalia Jiménez MD [address] [place] [phone] PCP - General 02/24/10 documented as of this encounter
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
--- OUTSIDE RECORDS SUMMARY | 2024-05-15 18:28 | XMS_ITS | Encounter Summary ---
Author Organization [facility] Address [address] [place] [address] Care Team Providers Care Malware Analyst Name Role Phone Unavailable Primary Care Provider Unavailabl e Encounter Details Date Type Department Care Team (Latest Contact Info) Description 12/22/1999 21:05 EDT Hospital Encounter [facility] - [facility] [address] [place] [address] Amalia Jiménez MD [address] [place] [phone] Unknown, Provider, Discharge Disposition: Auto Discharge Social History Tobacco Use Types Packs/Day Years Used Date Smoking Tobacco: Never Assessed Sex and Gender Information Value Date Recorded Sex Assigned at Not on file Gender Identity Not on file Sexual Orientation Not on file documented as of this encounter Discharge Disposition Disposition Code Departure Means Destination Auto Discharge documented in this encounter Plan of Treatment Not on file documented as of this encounter Visit Diagnoses Not on filedocumented in this encounter
--- OUTSIDE RECORDS SUMMARY | 2024-05-15 18:28 | XMS_ITS | Referral Summary ---
Author Organization [facility] Address [address] [place] [address] Care Team Providers Care Chemistry Research Assistant Name Role Phone Amalia Jiménez MD Primary Care Provider [phone] Social History Tobacco Use Types Packs/Day Years Used Date Smoking Tobacco: Never Assessed Sex and Gender Information Value Date Recorded Sex Assigned at Not on file Gender Identity Not on file Sexual Orientation Not on file Plan of Treatment Not on file Care Teams Chemistry Research Assistant Relationship Specialty Start Date End Date Amalia Jiménez MD [address] [place] [phone] PCP - General 02/24/10
--- OUTSIDE RECORDS SUMMARY | 2024-05-15 18:28 | XMS_ITS | Encounter Summary ---
Author Organization [facility] Address [address] [place] [address] Care Team Providers Care Herbarium Curator Name Role Phone Amalia Avery MD Primary Care Provider Encounter Details Date Type Department Care Team (Late st Contact Info) Description 02/25/2015 Results Only [facility] [phone] Amalia Avery MD [address] [facility] [address] [place] [address] Social History Tobacco Use Types [...] Diagnosis Comments PAP TEST- RESULT ONLY Routine 02/25/2015 0:00 EDT documented in this encounter Results * PAP TEST- RESULT ONLY (02/25/2015 0:00 EDT) Pathology Report: CYTOPATHOLOGY REPORT Reports generated via electronic interface contain original data; however they are lacking the format of the original report. Caution should be taken when reading/interpreti ng unformatted reports. Name: ? ULI LUO ? Accession #: ? [id number] ? : ? 1980 (Age: 34) ??F ?Collect Date: ? 02/25/2015 ? Location: ? [facility] ? Receive Date: ? 02/27/2015 ? Provider: AMALIA AVERY MD Copy to: ? Final Report SPECIMEN ADEQUACY ? Satisfactory for Evaluation - transformation zone component present GENERAL CATEGORIZATION ? Negative for Intraepithelial Lesion or Malignancy ?? Last Menstrual Period: 2014 Specimen/Source: ??Pap Test, Cervix, ThinPrep Imaging System with manual evaluation Document reviewed and electronically signed by: ? Chloe Saunders, CT(ASCP) ? Report ??Date: 03/03/2015 15:36 HPV with Pap Test ? Date Ordered: ? 03/03/2015 ? Status: ?? Signed Out ?Date Complete: ? 03/06/2015 ? By: ??System Interface ? Date Reported: ? 03/06/2015 ? Interpretation RESULT: Negative for HPV. No E6 or E7 mRNA is detected from HPV types 16,18,31,33,35, 39,45,51,52,56,58, 59,66, and 68 by alloy weigher mediated amplification. Comments Document reviewed and electronically signed by: ? System Interface ? Report date: 03/06/2015 By the signature above, the attending physician certifies that he/she has personally conducted a gross and/or microscopic examination of the described specimens and rendered or confirmed the above diagnosis. End of Report [facility] 02/25/2015 02/27/2015 Amalia Avery MD PATHOLOGY ORDERABLES [facility] [address] [place] [address] documented in this encounter Visit Diagnoses Not on filedocumented in this encounter Care Teams Herbarium Curator Relationship Specialty Start Date End Date Amalia Avery MD [address] [place] [phone] PCP - General 02/24/10 documented as of this encounter
--- OUTSIDE RECORDS SUMMARY | 2024-05-15 18:28 | XMS_ITS | Encounter Summary ---
Author Organization [facility] Address [address] [place] [address] Care Team Providers Care Hot Mill Supervisor Name Role Phone Amalia Avery MD Primary Care Provider [phone] Encounter Details Date Type Department Care Team (Late st Contact Info) Description 02/22/2010 Results Only [facility] Laboratory Services - [facility] ([facility]) [address] [place] [address] Amalia Avery MD [address] [place] [address] [place] [phone] Social History Tobacco Use Types Packs/Day Years Used Date Smoking Tobacco: Never Assessed Sex and Gender Information Value Date Recorded Sex Assigned at Not on file Gender Identity Not on file Sexual Orientation Not on file documented as of this encounter Plan of Treatment Not on file documented as of this encounter Procedures Procedure Name Priority Date/Time Associated Diagnosis Comments CYTOPATHOLOGY Routine 02/22/2010 0:00 EDT documented in this encounter Results * CYTOPATHOLOGY (02/22/2010 0:00 EDT) Pathology Report: CYTOPATHOLOGY REPORT ? Reports generated via electronic interface contain original data; ? however they are lacking the format of the original report. ? Caution should be taken when reading/interpreti ng unformatted reports. ? Name: ? ULI BRUNNER ? Accession #: ? [id number] ? : ? 1980 (Age: 29) ??F ?Collect Date: ? 02/22/2010 ? Location: ? [facility] ? Receive Date: ? 02/24/2010 ? Provider: ?AMALIA AVERY MD ? Copy to: ? Specimen/Source: ?Pap Test, Cervix/Endocervix, ThinPrep Imaging System ? with manual evaluation ? Last Menstrual Period: ? 02/19/2010 ? Hormonal/Contracep tive Status: ? Tubal ligation ? Other: ? Additional clinical information: abnormal paps in past many years ago ? HPVA - HPV testing requested if ASC-US on the current ThinPrep Pap test. ? SPECIMEN ADEQUACY ? Satisfactory for Evaluation ? - transformation zone component present ? GENERAL CATEGORIZATION ? Negative for Intraepithelial Lesion or Malignancy ? Document reviewed and electronically signed by: ? Sera Martin, SCT(ASCP) ? Report Date: ??02/26/2010 11:27 ? End of Report ? [facility] 02/22/2010 02/24/2010 Amalia Avery MD PATHOLOGY ORDERABLES [facility] [address] [place] [address] documented in this encounter Visit Diagnoses Not on filedocumented in this encounter Care Teams Hot Mill Supervisor Relationship Specialty Start Date End Date Amalia Avery MD [address] [place] [phone] PCP - General 02/24/10 documented as of this encounter
[2024-05-15 21:28] LABS: Bacteria Moderate HPF (Negative); C & S Indicated? C&S Done As Ordered; Crystals Negative HPF (Negative); Epithelial Cells Few HPF (Negative); Mucus Trace (Negative); RBC 20-50 HPF (0-2)
== END 2024-05-15 18:28 | disposition home or self-care (01) ==
LOC: LBN 18:27
PROVIDERS: PCP Family Medicine; Visit Provider Physician Assistant Medical
DX: R30.0 Dysuria (principal)
CPT/HCPCS: 87077; 81015; 87086; 87186

== ENCOUNTER 2024-07-18 21:37 | Outpatient (REF) | payer OTHER, SELFPAY ==
--- OUTSIDE RECORDS SUMMARY | 2024-07-18 21:39 | XMS_ITS | Referral Summary ---
Author Organization [facility] Address [address] [place] [address] Care Team Providers Care Sys Dir Name Role Phone Amalia Jiménez MD Primary Care Provider [phone] Social History Tobacco Use Types Packs/Day Years Used Date Smoking Tobacco: Never Assessed Comments Unknown Sex and Gender Information Value Date Recorded Sex Assigned at Not on file Legal Sex Female 18:07 EST Gender Identity Not on file Sexual Orientation Not on file Plan of Treatment Not on file Care Teams Sys Dir Relationship Specialty Start Date End Date Amalia Jiménez MD [address] [place] [phone] PCP - General 02/24/10
--- OUTSIDE RECORDS SUMMARY | 2024-07-18 21:39 | XMS_ITS | Clinical Summary ---
Author Organization [facility] Address [address] [place] [address] Care Team Providers Care Arch Cushion Press Operator Name Role Phone Amalia Jiménez MD Primary Care Provider [phone] Social History Tobacco Use Types Packs/Day Years [...] - 19+ 3-dose series) 11/11 COVID-19 Vaccine ( season) 2024 Care Teams Arch Cushion Press Operator Relationship Specialty Start Date End Date Amalia Jiménez MD [address] [place] [phone] PCP - General 02/24/10
--- OUTSIDE RECORDS SUMMARY | 2024-07-18 21:40 | XMS_ITS | Encounter Summary ---
Author Organization [facility] Address [address] [place] [address] Care Team Providers Care Make Up Girl Name Role Phone Amalia Avery MD Primary Care Provider [phone] Encounter Details Date Type Department Care Team (Late st Contact Info) Description 01/27/2006 Results Only [facility] [place] [facility] [address] [place] [address] Amalia Avery MD [address] [facility] [address] [place] [phone] Social History Tobacco Use Types Packs/Day [...] ? ULI BRUNNER ? Accession #: ? [id number] : ? 1980 (Age: 25) ??F ?Collect Date: ? 01/27/2006 Location: ? [facility] ? Receive Date: ? 01/31/2006 Provider: ?AMALIA AVERY MD Copy to: ? Specimen/Source: ?ThinPrep Pap Test, Cervix/Endocervix, processed on OpenBook ThinPrep Imaging System, with manual evaluation Last Menstrual Period: ? 01/06/06 Other: ? HPVA - HPV testing requested if ASC-US on the current ThinPrep Pap test. ? SPECIMEN ADEQUACY ? Satisfactory for Evaluation - transformation zone component present GENERAL CATEGORIZATION ? Negative for Intraepithelial Lesion or Malignancy ? Document reviewed and electronically signed by: ? Sera Martin, SCT(ASCP) ? Report Date: ??02/02/2006 12:10 End of Report [facility] 01/27/2006 01/31/2006 us Amalia Avery MD PATHOLOGY ORDERABLES Final Resul t Performing Organization Address City/State/[facility] Co de Phone Number [facility] [address] [place] [address] documented in this encounter Visit Diagnoses Not on filedocumented in this encounter Care Teams Make Up Girl Relationship Specialty Start Date End Date Amalia Avery MD [address] [place] [phone] PCP - General 02/24/10 documented as of this encounter
--- OUTSIDE RECORDS SUMMARY | 2024-07-18 21:40 | XMS_ITS | Encounter Summary ---
Author Organization [facility] Address [address] [place] [address] Care Team Providers Care Diagnostics Tech Name Role Phone Amalia Jiménez MD Primary Care Provider [phone] Encounter Details Date Type Department Care Team (Latest Contact Info) Description 04/17/2020 Lab Requisition [facility] Pathology & Laboratory Medicine - [facility] [address] [place] [address] Amalia Jiménez MD [address] [place] [phone] Encounter for general adult medical examination [...] types, PCR Negative Negative 04/24/2020 15:07 EDT [facility] Comment:No E6 or E7 mRNA is detected from HPV types 16,18,31,33,35,39,45,51,52,56,58,59,66, and 68 by paratransit driver mediated amplification. Papanicolaou smear specimen (specimen) CERVIX UTERI STRUCTURE / Unknown 04/16/2020 12:00 EDT 04/22/2020 16:09 EDT us Amalia Jiménez MD MICROBIOLOGY - GENERAL ORDERABLE S Final Result [facility] [address] [place] [address] * PAP TEST (04/16/2020 12:00 EDT) Specimens A. Cervix and/or Endocervix , ThinPrep Imaging System with Manual Evaluation 04/24/2020 15:07 T [facility] Specimen Adequacy Satisfactory for Evaluation - transformation zone component absent 04/24/2020 15:07 [facility] General Categorization Negative for intraepithelial lesion or malignancy 04/24/2020 15:07 [facility] Attestation . 04/24/2020 15:07 [facility] at 1507 Clinical History See below 04/24/20 20 15:07 T [facility] HPV The result for the Human Papillomavirus (HPV) Detection-High Risk Types is Negative. No E6 or E7 mRNA is detected from HPV types 16,18,31,33,35,39 ,45,51,52,56,58,5 9,66, and 68 by paratransit driver mediated amplification.Mel ting was performed on specimen [id number] and was resulted on 04/24/2020 1501 EDT by MAKENZIE, LAB INSTRUMENT RESULTS IN 04/24/2020 15:07 T [facility] Performing Lab [facility] 04/24/2020 15:07 T [facility] Scanned Images 04/24/2020 15:07 EDT [facility] Papanicolaou smear specimen (specimen) CERVIX UTERI STRUCTURE / Unknown 04/16/2020 12:00 EDT 04/17/2020 13:28 EDT us Amalia Jiménez MD PATHOLOGY ORDERABLES Final Resul t [facility] [address] [place] [address] documented in this encounter Visit Diagnoses Diagnosis Encounter for general adult medical examination without abnormal findings Unspecified general medical examination Encounter for screening for malignant neoplasm of cervix Screening for malignant neoplasm of the cervix Encounter for screening for human papillomavirus (HPV) Special screening examination for human papillomavirus (HPV) documented in this encounter Care Teams Diagnostics Tech Relationship Specialty Start Date End Date Amalia Jiménez MD [address] [place] [phone] PCP - General 02/24/10 documented as of this encounter
--- OUTSIDE RECORDS SUMMARY | 2024-07-18 21:40 | XMS_ITS | Encounter Summary ---
Author Organization [facility] Address [address] [place] [address] Care Team Providers Care Plant Engineering Supervisor Name Role Phone Amalia Avery MD Primary Care Provider Encounter Details Date Type Department Care Team (Late st Contact Info) Description 02/25/2015 Results Only [facility] [phone] Amalia Avery MD [address] [facility] [address] [place] [phone] Social History Tobacco Use Types [...] ? ULI LUO ? Accession #: ? [id number] ? : ? 1980 (Age: 34) ??F [...] types 16,18,31,33,35, 39,45,51,52,56,58, 59,66, and 68 by family sociologist mediated amplification. Comments Document reviewed and electronically signed by: ? System Interface ? Report date: 03/06/2015 By the signature above, the attending physician certifies that he/she has personally conducted a gross and/or microscopic examination of the described specimens and rendered or confirmed the above diagnosis. End of Report [facility] 02/25/2015 02/27/2015 us Amalia Avery MD PATHOLOGY ORDERABLES Final Resul t [facility] [address] [place] [address] documented in this encounter Visit Diagnoses Not on filedocumented in this encounter Care Teams Plant Engineering Supervisor Relationship Specialty Start Date End Date Amalia Avery MD [address] [place] [phone] PCP - General 02/24/10 documented as of this encounter
--- OUTSIDE RECORDS SUMMARY | 2024-07-18 21:40 | XMS_ITS | Encounter Summary ---
Author Organization [facility] Address [address] [place] [address] Care Team Providers Care Civil Engineering Manager Name Role Phone Amalia Jiménez MD Primary Care Provider [phone] Encounter Details Date Type Department Care Team (Late st Contact Info) Description 10/22/2002 Results Only [facility] [place] conversion [address] [place] [address] Bettie Pablo, [facility] [address] [place] [address] [place] [phone] Social History Tobacco Use Types [...] ? ULI BRUNNER ? Accession #: ? [id number] : ? 1980 (Age: 21) ??F ?Collect Date: ? 10/22/2002 Location: ? [facility] ? Receive Date: ? 10/24/2002 Provider: ?BETTIE PABLO FORMING PROCESS LINE WORKER Copy to: ? Specimen/Source: ?ThinPrep Pap Test, Cervix/Endocervix Last Menstrual Period: ? 10/15/02 ? SPECIMEN ADEQUACY ? Satisfactory for Evaluation - transformation zone component present GENERAL CATEGORIZATION ? Negative for Intraepithelial Lesion or Malignancy ? Document reviewed and electronically signed by: ? Thuan Boss, TATYANA(ASCP) ? Report Date: ??10/28/2002 12:36 End of Report [facility] 10/22/2002 10/24/2002 us Bettie Pablo FORMING PROCESS LINE WORKER PATHOLOGY ORDERABLES Final R esult Performing Organization Address City/State/[facility] Co de Phone Number [facility] [address] [place] [address] documented in this encounter Visit Diagnoses Not on filedocumented in this encounter Care Teams Civil Engineering Manager Relationship Specialty Start Date End Date Amalia Jiménez MD [address] [phone] PCP - General 02/24/10 documented as of this encounter
--- OUTSIDE RECORDS SUMMARY | 2024-07-18 21:40 | XMS_ITS | Encounter Summary ---
Author Organization [facility] Address [address] [place] [address] Care Team Providers Care Rock Drill Operator Name Role Phone Unavailable Primary Care Provider Unavailabl e Encounter Details Date Type Department Care Team (Latest Contact Info) Description 12/22/1999 21:05 EDT Hospital Encounter [facility] - Other [address] [place] [address] Amalia Jiménez MD [address] [place] [phone] Unknown, Provider, Discharge Disposition: Auto Discharge Social [...]
--- OUTSIDE RECORDS SUMMARY | 2024-07-18 21:40 | XMS_ITS | Encounter Summary ---
Author Organization [facility] Address [address] [place] [address] Care Team Providers Care Clinical Assistant Name Role Phone Unavailable Primary Care Provider Unavailabl e Encounter Details Date Type Department Care Team (Late st Contact Info) Description 08/28/2000 Results Only [facility] [address] [place] [address] Amalia Avery MD [address] [phone] Social History Tobacco Use Types [...] End of Report [facility] 08/28/2000 08/30/2000 us Amalia Avery MD PATHOLOGY ORDERABLES Final Resul t [facility] [address] [place] [address] documented in this encounter Visit Diagnoses Not on filedocumented in this encounter
--- OUTSIDE RECORDS SUMMARY | 2024-07-18 21:40 | XMS_ITS | Encounter Summary ---
Author Organization [facility] Address [address] [place] [address] Care Team Providers Care Patient Transporter Name Role Phone Amalia Jiménez MD Primary Care Provider [phone] Encounter Details Date Type Department Care Team (Late st Contact Info) Description 06/04/2019 Lab Requisition [facility] Pathology & Laboratory Medicine - [facility] [address] [place] [address] Rubens Alvarado, [address] [place], [place] [phone] Neoplasm of unspecified behavior of bone, soft [...] - Pilar (trichilemmal) cyst. 06/05/2019 12:35 EST [facility] at 1235 Clinical History D 49.2 06/05/2019 12:35 [facility] Attestation By the signature below, the attending physician certifies that they have personally conducted a gross and/or microscopic examination of the described specimens and rendered or confirmed the above diagnosis. 06/05/2019 12:35 [facility] at 1235 Gross Description [...] face Venkat Foley 06/04/2019 10:29 06/05/2019 12:35 [facility] Scanned Images 06/05/2019 12:35 [facility] Tissue TISSUE SPECIMEN FROM SKIN / Unknown 06/03/2019 16:10 EST 06/04/2019 8:58 EST us Rubens Alvarado DO PATHOLOGY ORDERABLES Fi nal Result Performing Organization Address City/State/[facility] Co de Phone Number [facility] [address] [place] [address] documented in this encounter Visit Diagnoses Diagnosis Neoplasm of unspecified behavior of bone, soft tissue, and skin documented in this encounter Care Teams Patient Transporter Relationship Specialty Start Date End Date Amalia Jiménez MD [address] [place] [phone] PCP - General 02/24/10 documented as of this encounter
--- OUTSIDE RECORDS SUMMARY | 2024-07-18 21:40 | XMS_ITS | Encounter Summary ---
Author Organization [facility] Address [address] [place] [address] Care Team Providers Care Barkeep Name Role Phone Unavailable Primary Care Provider Unavailabl e Encounter Details Date Type Department Care Team (Late st Contact Info) Description 10/09/2001 Results Only [facility] [address] [place] [address] [address] [place], [place] [phone] Social History Tobacco Use Types Packs/Day Years [...] ? ULI GALEANA ? Accession #: ? [id number] : ? 1980 (Age: 20) ??F ?Collect [...] End of Report [facility] 10/09/2001 10/11/2001 us Jinny Dumont CNM PATHOLOGY ORDERABLES Final Resul t [facility] [address] [place] [address] documented in this encounter Visit Diagnoses Not on filedocumented in this encounter
--- OUTSIDE RECORDS SUMMARY | 2024-07-18 21:40 | XMS_ITS | Encounter Summary ---
Author Organization [facility] Address [address] [place] [address] Care Team Providers Care Payroll And Benefits Assistant Name Role Phone Unavailable Primary Care Provider Unavailabl e Encounter Details Date Type Department Care Team (Late st Contact Info) Description 04/25/2002 Results Only [facility] [place] [facility] - [place] conversion [address] [place] [address] Loli Lopez MD [address] [place] [address] [place] [phone] Social History Tobacco Use Types Packs/Day Years [...] when reading/interpreti ng unformatted reports. Name: ? LISSETTJULIETAJUJU ? Accession #: ? [id number] ? : ? 1980 (Age: 21) ??F [...] smooth surface with a pinpoint lumen. ??Two automobile sales representative cross sections are submitted as (A). Received in formalin labelled Brown and right tube is a portion of fallopian tube which measures 1.8 cm in length and 0.3 cm in diameter. ??The serosal surface is bae-pink, smooth and focally hemorrhagic. ??Cut sections reveal a bae-white smooth surface with a pinpoint lumen. ??Two automobile sales representative cross sections are submitted as (B). ?? (A. Ciolino-SC)/tmg End of Report [facility] 04/25/2002 04/25/2002 15: 16 EDT us Loli Lopez MD PATHOLOGY ORDERABLES Final Resu lt [facility] [address] [place] [address] documented in this encounter Visit Diagnoses Not on filedocumented in this encounter
--- OUTSIDE RECORDS SUMMARY | 2024-07-18 21:40 | XMS_ITS | Encounter Summary ---
Author Organization [facility] Address [address] [place] [address] Care Team Providers Care Casual Shoe Inspector Name Role Phone Unavailable Primary Care Provider Unavailabl e Encounter Details Date Type Department Care Team (Late st Contact Info) Description 10/27/1999 Results Only [facility] [place] [facility] [address] [place] [address] Amalia Avery MD [address] [phone] Social History Tobacco Use Types [...] ? ULI GALEANA ? Accession #: ? [id number] : ? 1980 (Age: 18) ??F ?Collect Date: ? 10/27/1999 Location: ?Receive Date: ? 10/27/1999 Provider: ?AMALIA AVERY MD Copy to: ?AMALIA AVERY MD ? Specimen/Source: ?Pap Smear (One Slide) Last Menstrual Period: ? GYNECOLOGIC ??CYTOPATHOLOGY ??REPORT Name: ULI GALEANA ? FA : 1980 ?? 18Y F ?Client ID: [id number] SS#: [id number] ? Clinician: AMALIA AVERY MD ?? Location: [facility] ??Copy to: ?? Specimen: ?Pap Smear (One [...] Martin, SCT(ASCP) ? Report Date: ?? 11/03/1999 [facility] Archived Tests - Final Diagnosis Text Field: Clinical History : ? Document reviewed and electronically signed by: ? Conversion ? Report Date: ??11/03/1999 00:00 End of Report [facility] 10/27/1999 10:0 5 EDT 10/27/1999 10:06 EDT us Amalia Avery MD PATHOLOGY ORDERABLES Final Resul t Performing Organization Address City/State/[facility] Co de Phone Number [facility] [address] [place] [address] documented in this encounter Visit Diagnoses Not on filedocumented in this encounter
--- OUTSIDE RECORDS SUMMARY | 2024-07-18 21:40 | XMS_ITS | Encounter Summary ---
Author Organization [facility] Address [address] [place] [address] Care Team Providers Care Rag Sorter And Cutter Name Role Phone Amalia Avery MD Primary Care Provider Encounter Details Date Type Department Care Team (Late st Contact Info) Description 02/22/2010 Results Only [facility] Laboratory Services - [facility] ([facility]) [address] [place] [address] Amalia Avery MD [address] [phone] Social History Tobacco Use Types [...] ? ULI BRUNNER ? Accession #: ? [id number] ? : ? 1980 (Age: 29) ??F [...] reviewed and electronically signed by: ? Sera B. Mario, SCT(ASCP) ? Report Date: ??02/26/2010 11:27 ? End of Report ? [facility] 02/22/2010 02/24/2010 us Amalia Avery MD PATHOLOGY ORDERABLES Final Resul t [facility] [address] [place] [address] documented in this encounter Visit Diagnoses Not on filedocumented in this encounter Care Teams Rag Sorter And Cutter Relationship Specialty Start Date End Date Amalia Avery MD [address] [place] [phone] PCP - General 02/24/10 documented as of this encounter
--- OUTSIDE RECORDS SUMMARY | 2024-07-18 21:40 | XMS_ITS | Encounter Summary ---
Author Organization [facility] Address [address] [place] [address] Care Team Providers Care Director Corporate Sales Name Role Phone Amalia Jiménez MD Primary Care Provider Encounter Details Date Type Department Care Team (Late st Contact Info) Description 03/10/2011 Results Only [facility] Laboratory Services - [facility] ([facility] [place] [address] [place] [address] Amalia Jiménez MD [address] [phone] Social History Tobacco Use Types [...] ng unformatted reports. ? Name: ? ULI BASSETT ? Accession #: ? [id number] ? : ? 1980 (Age: 30) ??F [...] Report ? [facility] 03/10/2011 03/14/2011 us Amalia Jiménez MD PATHOLOGY ORDERABLES Final Resul t Performing Organization Address City/State/[facility] Co de Phone Number [facility] [address] [place] [address] documented in this encounter Visit Diagnoses Not on filedocumented in this encounter Care Teams Director Corporate Sales Relationship Specialty Start Date End Date Amalia Jiménez MD [address] [place] [phone] PCP - General 02/24/10 documented as of this encounter
--- OUTSIDE RECORDS SUMMARY | 2024-07-18 21:40 | XMS_ITS | Encounter Summary ---
Author Organization [facility] Address [address] [place] [address] Care Team Providers Care Batch Tank Controller Name Role Phone Amalia Avery MD Primary Care Provider [phone] Encounter Details Date Type Department Care Team (Late st Contact Info) Description 07/12/2007 Results Only [facility] [place] conversion [address] [place] [address] Amalia Avery MD [address] [facility] [place] [address] [place] [phone] Social History Tobacco Use Types Packs/Day [...] ? ULI BRUNNER ? Accession #: ? [id number] : ? 1980 (Age: 26) ??F ?Collect Date: ? 07/12/2007 Location: ? [facility] ? Receive Date: ? 07/18/2007 Provider: ?AMALIA AVERY MD Copy to: ? Specimen/Source: ?ThinPrep Pap Test, Cervix/Endocervix, processed on Real Time Translation ThinPrep Imaging System, with manual evaluation Last Menstrual Period: ? 06/28/07 Other: ? HPVA - HPV testing requested if ASC-US on the current ThinPrep Pap test. ? SPECIMEN ADEQUACY ? Satisfactory for Evaluation - transformation zone component present GENERAL CATEGORIZATION ? Negative for Intraepithelial Lesion or Malignancy ? Document reviewed and electronically signed by: ? TATYANA Abbott(ASCP) ? Report Date: ??07/20/2007 12:19 End of Report [facility] 07/12/2007 07/18/2007 us Amalia Avery MD PATHOLOGY ORDERABLES Final Resul t Performing Organization Address City/State/[facility] Co de Phone Number [facility] [address] [place] [address] documented in this encounter Visit Diagnoses Not on filedocumented in this encounter Care Teams Batch Tank Controller Relationship Specialty Start Date End Date Amalia Avery MD [address] [place] [phone] PCP - General 02/24/10 documented as of this encounter
== END 2024-07-18 21:38 | disposition home or self-care (01) ==
LOC: LBN 21:37
PROVIDERS: PCP Family Medicine; Visit Provider Family Medicine
DX: N39.0 Urinary tract infection, site not specified (principal)
CPT/HCPCS: 87086

== ENCOUNTER 2024-08-26 16:48 | Outpatient (REF) | payer OTHER, SELFPAY ==
--- OUTSIDE RECORDS SUMMARY | 2024-08-26 16:50 | XMS_ITS | Clinical Summary ---
Author Organization [facility] Address [address] [place] [address] Care Team Providers Care Chief Marketing Officer Name Role Phone Amalia Jiménez MD Primary Care Provider [phone] Social History Tobacco Use Types Packs/Day Years [...] COVID-19 Vaccine ( season) 2024 Care Teams Chief Marketing Officer Relationship Specialty Start Date End Date Amalia Jiménez MD [address] [place] [phone] PCP - General 02/24/10
--- OUTSIDE RECORDS SUMMARY | 2024-08-26 16:50 | XMS_ITS | Encounter Summary ---
Author Organization [facility] Address [address] [place] [address] Care Team Providers Care Senior Corporate Accountant Name Role Phone Amalia Jiménez MD Primary Care Provider Encounter Details Date Type Department Care Team (Late st Contact Info) Description 10/22/2002 Results Only [facility] conversion [address] [place] [address] Bettie Pablo, [facility] [address] [place] [address] [place] [phone] Social History Tobacco Use Types [...] ? ULI BRUNNER ? Accession #: ? [id number] : ? 1980 (Age: 21) ??F ?Collect Date: ? 10/22/2002 Location: ? [facility] ? Receive Date: ? 10/24/2002 Provider: ?BETTIE PABLO DIVISIONAL MERCHANDISING MANAGER Copy to: ? Specimen/Source: ?ThinPrep Pap Test, Cervix/Endocervix Last Menstrual Period: ? 10/15/02 ? SPECIMEN ADEQUACY ? Satisfactory for Evaluation - transformation zone component present GENERAL CATEGORIZATION ? Negative for Intraepithelial Lesion or Malignancy ? Document reviewed and electronically signed by: ? Thuan Boss, TATYANA(ASCP) ? Report Date: ??10/28/2002 12:36 End of Report [facility] 10/22/2002 10/24/2002 us Bettie Pablo DIVISIONAL MERCHANDISING MANAGER PATHOLOGY ORDERABLES Final R esult Performing Organization Address City/State/[facility] Co de Phone Number [facility] [address] [place] [address] documented in this encounter Visit Diagnoses Not on filedocumented in this encounter Care Teams Senior Corporate Accountant Relationship Specialty Start Date End Date Amalia Jiménez MD [address] [phone] PCP - General 02/24/10 documented as of this encounter
--- OUTSIDE RECORDS SUMMARY | 2024-08-26 16:50 | XMS_ITS | Encounter Summary ---
Author Organization [facility] Address [address] [place] [address] Care Team Providers Care Transmission Maintenance Supervisor Name Role Phone Amalia Avery MD Primary Care Provider [phone] Encounter Details Date Type Department Care Team (Late st Contact Info) Description 02/22/2010 Results Only [facility] Laboratory Services - [facility] ([facility] [address] [place] [address] Amalia Avery MD [address] [place] [address] [place] [phone] Social History Tobacco Use Types Packs/Day [...] ? ULI BRUNNER ? Accession #: ? [id number] ? : ? 1980 (Age: 29) ??F [...] Final Resul t [facility] [address] [place] [address] documented in this encounter Visit Diagnoses Not on filedocumented in this encounter Care Teams Transmission Maintenance Supervisor Relationship Specialty Start Date End Date Amalia Avery MD [address] [place] [phone] PCP - General 02/24/10 documented as of this encounter
--- OUTSIDE RECORDS SUMMARY | 2024-08-26 16:50 | XMS_ITS | Encounter Summary ---
Author Organization [facility] Address [address] [place] [address] Care Team Providers Care Rock Lather Name Role Phone Unavailable Primary Care Provider Unavailabl e Encounter Details Date Type Department Care Team (Late st Contact Info) Description 10/09/2001 Results Only [facility] [place] conversion [address] [place] [address] [address] [place], [place] [phone] Social History Tobacco Use Types Packs/Day Years [...] ? ULI GALEANA ? Accession #: ? [id number] : ? 1980 (Age: 20) ??F ?Collect [...] Final Resul t [facility] [address] [place] [address] documented in this encounter Visit Diagnoses Not on filedocumented in this encounter
--- OUTSIDE RECORDS SUMMARY | 2024-08-26 16:50 | XMS_ITS | Encounter Summary ---
Author Organization [facility] Address [address] [place] [address] Care Team Providers Care Tire And Lube Technician Name Role Phone Amalia Jiménez MD Primary Care Provider Encounter Details Date Type Department Care Team (Late st Contact Info) Description 03/10/2011 Results Only [facility] Laboratory Services - [facility] ([facility]) [address] [place] [address] Amalia Jiménez MD [address] [place] [address] [place] [phone] Social History Tobacco Use Types Packs/Day [...] ? ULI LUO ? Accession #: ? [id number] ? : ? 1980 (Age: 30) ??F [...] ORDERABLES Final Resul t Performing Organization Address City/State/[facility] Co de Phone Number [facility] [address] [place] [address] documented in this encounter Visit Diagnoses Not on filedocumented in this encounter Care Teams Tire And Lube Technician Relationship Specialty Start Date End Date Amalia Jiménez MD [address] [place] [phone] PCP - General 02/24/10 documented as of this encounter
--- OUTSIDE RECORDS SUMMARY | 2024-08-26 16:50 | XMS_ITS | Encounter Summary ---
Author Organization [facility] Address [address] [place] [address] Care Team Providers Care Aircraft Pneudraulic Systems Mechanic Name Role Phone Amalia Avery MD Primary Care Provider Encounter Details Date Type Department Care Team (Late st Contact Info) Description 02/25/2015 Results Only [facility] [phone] Amalia Avery MD [address] [facility] [place] [address] [place] [phone] Social History Tobacco Use Types [...] ? ULI LUO ? Accession #: ? [id number] ? : ? 1980 (Age: 34) ??F [...] types 16,18,31,33,35, 39,45,51,52,56,58, 59,66, and 68 by roll weigher mediated amplification. Comments Document reviewed and electronically signed by: ? System Interface ? Report date: 03/06/2015 By the signature above, the attending physician certifies that he/she has personally conducted a gross and/or microscopic examination of the described specimens and rendered or confirmed the above diagnosis. End of Report [facility] 02/25/2015 02/27/2015 us Amalia Avery MD PATHOLOGY ORDERABLES Final Resul t [facility] [address] [place] [address] documented in this encounter Visit Diagnoses Not on filedocumented in this encounter Care Teams Aircraft Pneudraulic Systems Mechanic Relationship Specialty Start Date End Date Amalia Avery MD [address] [place] [phone] PCP - General 02/24/10 documented as of this encounter
--- OUTSIDE RECORDS SUMMARY | 2024-08-26 16:50 | XMS_ITS | Encounter Summary ---
Author Organization [facility] Address [address] [place] [address] Care Team Providers Care Basket Mender Name Role Phone Amalia Jiménez MD Primary Care Provider [phone] Encounter Details Date Type Department Care Team (Latest Contact Info) Description 04/17/2020 Lab Requisition [facility] Pathology & Laboratory Medicine - [facility] [address] [place] [address] Amalia Jiménez MD [address] [place] [phone] Encounter for general adult medical examination [...] types, PCR Negative Negative 04/24/2020 15:07 EDT [facility] Comment:No E6 or E7 mRNA is detected from HPV types 16,18,31,33,35,39,45,51,52,56,58,59,66, and 68 by heat treating operator mediated amplification. Papanicolaou smear specimen (specimen) CERVIX UTERI STRUCTURE / Unknown 04/16/2020 12:00 EDT 04/22/2020 16:09 EDT us Amalia Jiménez MD MICROBIOLOGY - GENERAL ORDERABLE S Final Result [facility] [address] [place] [address] * PAP TEST (04/16/2020 12:00 EDT) Specimens A. Cervix and/or Endocervix , ThinPrep Imaging System with Manual Evaluation 04/24/2020 15:07 T [facility] Specimen Adequacy Satisfactory for Evaluation - transformation zone component absent 04/24/2020 15:07 [facility] General Categorization Negative for intraepithelial lesion or malignancy 04/24/2020 15:07 [facility] Attestation . 04/24/2020 15:07 [facility] at 1507 Clinical History See below 04/24/20 20 15:07 T [facility] HPV The result for the Human Papillomavirus (HPV) Detection-High Risk Types is Negative. No E6 or E7 mRNA is detected from HPV types 16,18,31,33,35,39 ,45,51,52,56,58,5 9,66, and 68 by heat treating operator mediated amplification.Mel ting was performed on specimen [id number] and was resulted on 04/24/2020 1501 EDT by MAKENZIE, LAB INSTRUMENT RESULTS IN 04/24/2020 15:07 T [facility] Performing Lab [facility] 04/24/2020 15:07 T [facility] Scanned Images 04/24/2020 15:07 EDT [facility] Papanicolaou smear specimen (specimen) CERVIX UTERI STRUCTURE / Unknown 04/16/2020 12:00 EDT 04/17/2020 13:28 EDT us Amalia Jiménez MD PATHOLOGY ORDERABLES Final Resul t [facility] [address] [place] [address] documented in this encounter Visit Diagnoses Diagnosis Encounter for general adult medical examination without abnormal findings Unspecified general medical examination Encounter for screening for malignant neoplasm of cervix Screening for malignant neoplasm of the cervix Encounter for screening for human papillomavirus (HPV) Special screening examination for human papillomavirus (HPV) documented in this encounter Care Teams Basket Mender Relationship Specialty Start Date End Date Amalia Jiménez MD [address] [place] [phone] PCP - General 02/24/10 documented as of this encounter
--- OUTSIDE RECORDS SUMMARY | 2024-08-26 16:50 | XMS_ITS | Encounter Summary ---
Author Organization [facility] Address [address] [place] [address] Care Team Providers Care Theology Professor Name Role Phone Unavailable Primary Care Provider Unavailabl e Encounter Details Date Type Department Care Team (Late st Contact Info) Description 04/25/2002 Results Only [facility] - [place] conversion [address] [place] [address] Loli Lopez MD [address] [place] [address] [place] [phone] Social History Tobacco Use Types Packs/Day Years [...] Name: ? LISSETTJULIETAJUJU ? Accession #: ? [id number] ? : ? 1980 (Age: 21) ??F [...] smooth surface with a pinpoint lumen. ??Two public utilities sales representative cross sections are submitted as (A). Received in formalin labelled Brown and right tube is a portion of fallopian tube which measures 1.8 cm in length and 0.3 cm in diameter. ??The serosal surface is bae-pink, smooth and focally hemorrhagic. ??Cut sections reveal a bae-white smooth surface with a pinpoint lumen. ??Two public utilities sales representative cross sections are submitted as (B). ?? (A. Ciolino-SC)/tmg End of Report [facility] 04/25/2002 04/25/2002 15: 16 EDT us Loli Lopez MD PATHOLOGY ORDERABLES Final Resu lt [facility] [address] [place] [address] documented in this encounter Visit Diagnoses Not on filedocumented in this encounter
--- OUTSIDE RECORDS SUMMARY | 2024-08-26 16:50 | XMS_ITS | Encounter Summary ---
Author Organization [facility] Address [address] [place] [address] Care Team Providers Care Radiation Technician Name Role Phone Unavailable Primary Care Provider Unavailabl e Encounter Details Date Type Department Care Team (Late st Contact Info) Description 10/27/1999 Results Only [facility] - [place] conversion [address] [place] [address] Amalia Avery MD [address] [phone] Social History Tobacco Use Types [...] ? ULI GALEANA ? Accession #: ? [id number] : ? 1980 (Age: 18) ??F ?Collect Date: ? 10/27/1999 Location: ?Receive Date: ? 10/27/1999 Provider: ?AMALIA AVERY MD Copy to: ?AMALIA AVERY MD ? Specimen/Source: ?Pap Smear (One Slide) Last Menstrual Period: ? GYNECOLOGIC ??CYTOPATHOLOGY ??REPORT Name: ULI GALEANA ? FA : 1980 ?? 18Y F ?Client ID: [id number] SS#: [id number] ? Clinician: AMALIA AVERY MD ?? Location: [facility] ??Copy to: ?? Specimen: ?Pap Smear [...] Martin, SCT(ASCP) ? Report Date: ?? 11/03/1999 [employer] Archived Tests - Final Diagnosis Text Field: Clinical History : ? Document reviewed and electronically signed by: ? Conversion ? Report Date: ??11/03/1999 00:00 End of Report [facility] 10/27/1999 10:0 5 EDT 10/27/1999 10:06 EDT us Amalia Avery MD PATHOLOGY ORDERABLES Final Resul t Performing Organization Address City/State/[facility] Co de Phone Number [facility] [address] [place] [address] documented in this encounter Visit Diagnoses Not on filedocumented in this encounter
--- OUTSIDE RECORDS SUMMARY | 2024-08-26 16:50 | XMS_ITS | Encounter Summary ---
Author Organization [facility] Address [address] [place] [address] Care Team Providers Care Pet Handler Name Role Phone Amalia Avery MD Primary Care Provider Encounter Details Date Type Department Care Team (Late st Contact Info) Description 07/12/2007 Results Only [facility] [place] conversion [address] [place] [address] Amalia Avery MD [address] [facility] [place] [address] [place] [phone] Social History Tobacco Use Types Packs/Day [...] ? ULI BRUNNER ? Accession #: ? [id number] : ? 1980 (Age: 26) ??F ?Collect Date: ? 07/12/2007 Location: ? [facility] ? Receive Date: ? 07/18/2007 Provider: ?AMALIA AVERY MD Copy to: ? Specimen/Source: ?ThinPrep Pap Test, Cervix/Endocervix, processed on Octapoly ThinPrep Imaging System, with manual evaluation Last [...] ORDERABLES Final Resul t Performing Organization Address City/State/[facility] Co de Phone Number [facility] [address] [place] [address] documented in this encounter Visit Diagnoses Not on filedocumented in this encounter Care Teams Pet Handler Relationship Specialty Start Date End Date Amalia Avery MD [address] [place] [phone] PCP - General 02/24/10 documented as of this encounter
--- OUTSIDE RECORDS SUMMARY | 2024-08-26 16:50 | XMS_ITS | Encounter Summary ---
Author Organization [facility] Address [address] [place] [address] Care Team Providers Care Dry Chain Worker Name Role Phone Amalia Avery MD Primary Care Provider Encounter Details Date Type Department Care Team (Late st Contact Info) Description 01/27/2006 Results Only [facility] [address] [place] [address] Amalia Avery MD [address] [facility] [place] [address] [place] [phone] Social History Tobacco Use Types Packs/Day [...] ? ULI BRUNNER ? Accession #: ? [id number] : ? 1980 (Age: 25) ??F ?Collect Date: ? 01/27/2006 Location: ? [facility] ? Receive Date: ? 01/31/2006 Provider: ?AMALIA AVERY MD Copy to: ? Specimen/Source: ?ThinPrep Pap Test, Cervix/Endocervix, processed on Klick2Contact ThinPrep Imaging System, with manual evaluation Last [...] ORDERABLES Final Resul t Performing Organization Address City/State/[facility] Co de Phone Number [facility] [address] [place] [address] documented in this encounter Visit Diagnoses Not on filedocumented in this encounter Care Teams Dry Chain Worker Relationship Specialty Start Date End Date Amalia Avery MD [address] [place] [phone] PCP - General 02/24/10 documented as of this encounter
--- OUTSIDE RECORDS SUMMARY | 2024-08-26 16:50 | XMS_ITS | Referral Summary ---
Author Organization [facility] Address [address] [place] [address] Care Team Providers Care Host Name Role Phone Amalia Jiménez MD Primary Care Provider [phone] Social History Tobacco Use Types Packs/Day Years Used Date Smoking Tobacco: Never Assessed Comments Unknown Sex and Gender Information Value Date Recorded Sex Assigned at Not on file Legal Sex Female 18:07 EST Gender Identity Not on file Sexual Orientation Not on file Plan of Treatment Not on file Care Teams Host Relationship Specialty Start Date End Date Amalia Jiménez MD [address] [place] [phone] PCP - General 02/24/10
--- OUTSIDE RECORDS SUMMARY | 2024-08-26 16:50 | XMS_ITS | Encounter Summary ---
Author Organization [facility] Address [address] [place] [address] Care Team Providers Care Stringing Machine Tender Name Role Phone Unavailable Primary Care Provider Unavailabl e Encounter Details Date Type Department Care Team (Latest Contact Info) Description 12/22/1999 21:05 EDT Hospital Encounter [facility] - Other [address] [place] [address] Amalia Jiménez MD [address] [place] [phone] Unknown, Provider, Discharge Disposition: Auto Discharge [...]
--- OUTSIDE RECORDS SUMMARY | 2024-08-26 16:50 | XMS_ITS | Encounter Summary ---
Author Organization [facility] Address [address] [place] [address] Care Team Providers Care Engineer Automated Equipment Name Role Phone Unavailable Primary Care Provider Unavailabl e Encounter Details Date Type Department Care Team (Late st Contact Info) Description 08/28/2000 Results Only [facility] - [place] conversion [address] [place] [address] Amalia Avery MD [address] [phone] Social History Tobacco Use Types [...] ORDERABLES Final Resul t [facility] [address] [place] [address] documented in this encounter Visit Diagnoses Not on filedocumented in this encounter
--- OUTSIDE RECORDS SUMMARY | 2024-08-26 16:50 | XMS_ITS | Encounter Summary ---
Author Organization [facility] Address [address] [place] [address] Care Team Providers Care Product Manager Name Role Phone Amalia Jiménez MD Primary Care Provider Encounter Details Date Type Department Care Team (Late st Contact Info) Description 06/04/2019 Lab Requisition [facility] Pathology & Laboratory Medicine - [facility] [address] [place] [address] Rubens Alvarado, [address] [place], [place] [phone] Neoplasm of unspecified behavior of bone, soft [...] - Pilar (trichilemmal) cyst. 06/05/2019 12:35 EST [facility] at 1235 Clinical History D 49.2 06/05/2019 12:35 [facility] Attestation By the signature below, the attending physician certifies that they have personally conducted a gross and/or microscopic examination of the described specimens and rendered or confirmed the above diagnosis. 06/05/2019 12:35 [facility] at 1235 Gross Description Received [...] face Venkat Foley 06/04/2019 10:29 06/05/2019 12:35 [facility] Scanned Images 06/05/2019 12:35 [facility] Tissue TISSUE SPECIMEN FROM SKIN / Unknown 06/03/2019 16:10 EST 06/04/2019 8:58 EST us Rubens Alvarado DO PATHOLOGY ORDERABLES Fi nal Result Performing Organization Address City/State/[facility] Co de Phone Number [facility] [address] [place] [address] documented in this encounter Visit Diagnoses Diagnosis Neoplasm of unspecified behavior of bone, soft tissue, and skin documented in this encounter Care Teams Product Manager Relationship Specialty Start Date End Date Amalia Jiménez MD [address] [place] [phone] PCP - General 02/24/10 documented as of this encounter
[2024-08-26 18:50] LABS: Bilirubin Negative (Negative); Blood Trace-lysed (Negative); Clarity Clear (Clear); Glucose Negative (Negative); Ketones Negative (Negative); Leukocyte Esterase Trace (Negative); Nitrite Positive (Negative); Urobilinogen 0.2 mg/dL (Up to 0.2); pH 5.5 (5-8)
[2024-08-26 19:20] LABS: Bacteria Rare HPF (Negative); C & S Indicated? No/Sq. Contamination; Casts Negative LPF (Negative); Crystals Negative HPF (Negative); Epithelial Cells Moderate HPF (Negative); Mucus Negative (Negative); RBC 0-2 HPF (0-2)
== END 2024-08-26 16:49 | disposition home or self-care (01) ==
LOC: NCHCN 16:48
PROVIDERS: PCP Family Medicine; Visit Provider Family Medicine
DX: N39.0 Urinary tract infection, site not specified (principal)
CPT/HCPCS: 81003; 81015

== ENCOUNTER 2024-11-27 00:41 | Outpatient (CLI) | payer OTHER, SELFPAY ==
--- NOTE | 2024-11-27 | DI.MAMMO_ITS ---
Exam(s) MAMMO SCREENING EXAM: MAMMO SCREENING CLINICAL HISTORY: SCREENING,Z12.31. TECHNIQUE: Bilateral full field digital CC and MLO mammographic images were obtained with 3D tomosyn thesis and utilizing computer aided detection (CAD). COMPARISON: Prior mammograms were reviewed. FINDINGS: No new significant left breast findings In the right breast there is a benign-appearing microcalcification group in the upper outer quadrant which was not present on the most recent mammogram of 2019. There are no new spiculated masses nor new malignant appearing microcalcification groups. There is no significant architectural distortion nor skin thickening-retraction. IMPRESSION: Benign findings. No radiographic evidence of malignancy. BI-RADS Category 2 - Benign Findings Breast Density - Category C - The breast are heterogeneously dense, which may obscure small masses. Breast density Category C or D implies that the patient has dense breast tissue. Dense breast tissue can make it harder to find cancer on a mammogram. Dense breast tissue is also associated with an incr eased risk of breast cancer. This information about the result of the mammogram report was provided to the patient to raise their awareness. Use this report when you speak with the patient about their risks for breast cancer, which includes their family history. At that time, you may recommend additional screening tests (Ultrasoun d or MRI) as these tests may add significant information. A negative radiographic report should not delay biopsy if a dominant or clinically suspicious mass is present. Up to ten percent of cancers are not identified on mammography. A negative report may reinforce clinical impression. Adenosis and dense breasts may obscure an underlying neoplasm. False positive reports average 6 to 10%. Patient will receive a letter notifying them of these results.
== END 2024-11-27 01:01 ==
LOC: DI 00:42
PROVIDERS: PCP Family Medicine; Visit Provider Family Medicine
DX: Z12.31 Encounter for screening mammogram for malignant neoplasm of breast (principal); R92.333 Mammographic heterogeneous density, bilateral breasts; D24.1 Benign neoplasm of right breast
CPT/HCPCS: 77063; 77067

== ENCOUNTER 2024-12-03 19:53 | Outpatient (REF) | payer OTHER, SELFPAY | END 2024-12-03 19:54 | disposition home or self-care (01) | LOC: LBN 19:53 | PROVIDERS: PCP Family Medicine; Visit Provider Physician Assistant | DX: N89.8 Other specified noninflammatory disorders of vagina (principal) | CPT/HCPCS: 87070; 87205 ==

== ENCOUNTER 2025-01-06 18:32 | Outpatient (REF) | payer OTHER, SELFPAY ==
[2025-01-06 19:39] LABS: HCT 39.8 % (36.0-46.0); HGB 13.1 g/dL (11.2-15.7); MCH 28.5 pg (27.0-33.0); MCHC 32.9 % (32.0-36.0); MCV 87 fL (80-95); MPV 11.8 fL (8.0-11.0); Platelet Count 266 10^3/uL (130-400); RDW 12.3 % (11.7-14.6); RDW-SD 38.9 fL; WBC 8.24 10^3/uL (4.4-10.8)
[2025-01-06 19:58] LABS: ALT 28 U/L (14-59); AST 16 U/L (15-37); Albumin 4.3 g/dL (3.4-5.0); Alkaline Phosphatase 71 U/L (46-116); Anion Gap 11.1 mmol/L (3-11); BUN 19 mg/dL (7-18); Bilirubin, Total 0.5 mg/dL (0.2-1.0); CO2 26.9 mmol/L (21.0-32.0); CREATININE 0.8 mg/dL (0.55-1.02); Calcium 9.4 mg/dL (8.5-10.1); Chloride 103 mmol/L (98-107); Estimated GFR 91.97 (mL/min/1.73m2); Glucose 86 mg/dL (74-106); Potassium 3.9 mmol/L (3.5-5.1); Sodium 141 mmol/L (136-145); TSH (W/Ref FT4) 2.59 uIU/mL (0.36-3.74); Total Protein 7.3 g/dL (6.4-8.2)
[2025-01-06 21:28] LABS: Hemoglobin A1C 5.3 % (<5.7)
== END 2025-01-06 18:33 | disposition home or self-care (01) ==
LOC: NCHCN 18:32
PROVIDERS: PCP Family Medicine; Visit Provider Family Medicine
DX: R63.5 Abnormal weight gain (principal); R53.83 Other fatigue
CPT/HCPCS: 80053; 85027; 83036; 84443

== ENCOUNTER 2025-01-27 02:58 | Outpatient (CLI) | payer OTHER, SELFPAY ==
--- NOTE | 2025-01-27 14:47 | DI.RAD_ITS ---
Exam(s) XR FOOT RT COMPLETE EXAM: XR FOOT RT COMPLETE CLINICAL HISTORY: Second MPJ pain, METATARSALGIA RT FOOT, M77.41. TECHNIQUE: 2D digital imaging was performed. Three views. COMPARISON: No exams were available for comparison FINDINGS: BONES: No acute fracture is present. No bony destructive lesion is seen. Small spur at the Achilles insertion on the calcaneus. JOINTS: No dislocation present. No significant degenerative changes. SOFT TISSUE: Normal. IMPRESSION: Small enthesophyte at the Achilles insertion. DATA REPOSITORY: RADIATION DOSE DELIVERED:
== END 2025-01-27 03:18 ==
LOC: DI 02:58
PROVIDERS: PCP Family Medicine; Visit Provider Podiatrist
DX: M77.41 Metatarsalgia, right foot (principal)
CPT/HCPCS: 73630

== ENCOUNTER 2025-04-25 21:38 | Outpatient (REF) | payer OTHER, SELFPAY | END 2025-04-25 21:39 | disposition home or self-care (01) | LOC: LBN 21:38 | PROVIDERS: PCP Family Medicine; Visit Provider Physician Assistant Medical | DX: R30.0 Dysuria (principal) | CPT/HCPCS: 87077; 81015; 87086; 87186; 87480; 87510; 87660 ==